=== PATIENT | male | born 1950 | race Caucasian/White ===

== ENCOUNTER 2021-10-25 07:37 | Outpatient (CLI) | payer MEDICARE, SELFPAY ==
[2021-10-16 09:47] VITALS: BMI 29.1
--- NOTE | 2021-10-16 09:49 | PC.NURSE ---
Pre Radiology instructions Report to the Outpatient Waiting Room, entrance under the green pavilion located off [facility], at time _0800 on date _10/25/21 . Procedure Time: ___1000 . One visitor will be allowed to accompany the patient into the hospital. The visitor will be instructed to remain with patient at all times or leave the building. We will allow the visitor to come back to the postoperative area when patient is ready. You and your visitor will be asked a series of questions to screen for COVID 19 for your protection. A mask is required within the hospital. Patients are to have no food or drink 6 hours prior to procedure time Driving will be restricted after the procedure, you must have a person to drive you home. Labs will be drawn in preop area and once reviewed, you will be taken to radiology area for procedure. When the procedure is completed, you will be taken to outpatient where you will be monitored for several hours. You may have one visitor in this area. Other than holding anti-coagulants, patient may take other medication(s) as scheduled. Prior to your appointment date patients are instructed to hold anti-coagulants after discussing with ordering provider to stop. If unable to discontinue anti-coagulants please notify radiologist. No aspirin or warfarin (Coumadin) for 7 days prior to the procedure. No clopidogrel (Plavix), ticagrelor (Brilinta), prasugrel (Effient) or dabigatran (Pradaxa) for 5 days prior to the procedure. No rivaroxaban (Xarelto), apixaban (Eliquis), dipyridamole (Aggrenox or Persantine) or cilostazol (Pletal) for 2 days prior to the procedure. Medications to discontinue per physician: NONE Date to take last dose: Please leave all valuables, including medications, at home the day of procedure. The hospital will not accept responsibility for valuables. Wear comfortable, loose fitting clothing. Follow any additional instructions given to you from ordering provider. Telephone instructions given to __PATIENT'S MINGO and asked if any additional questions and then verbalized understanding. Patient advised to call scheduling provider office or registration scheduling [phone] if any additional questions.
--- NOTE | ~2021-10-25 | XR_ITS ---
EXAMINATION: XR myelogram spine lumbosacral DATE: 10/25/2021 10:09 INDICATION: Lumbar spondylosis with low back pain and lower limb radiculopathy TECHNIQUE: Informed consent was obtained from the patient. Risks and benefits including bleeding, i nfection and nerve root injury were discussed with the patient. The patient agreed to proceed. Time out procedure was performed. Store Custodian radiograph was obtained. An entry site was chosen at the L3-L4 level. Interspinous process approach was used. Standard sterile prep was done with Betadine. Entry site was infiltrated with 3 cc 1% lidocaine for local anesthesia. A 3.5 22G spinal needle was then inserted into the spinal canal. 15 mL Omnipaque 180 were then injected into the thecal sac with inte rmittent fluoroscopic observation. Frontal, lateral and left and right oblique fluoroscopic images were then acquired. The patient was then transferred to CT scan for spiral CT of the lumbar spine which will be dictated separately. Fol lowing this patient was transferred to the postoperative area for 2 hours of observation. There are no immediate complications. FINDINGS: Images demonstrate access of the thecal sac by interspinous process approach at the level of L3-L4. S ubsequent images demonstrate normal filling of the thecal sac with contrast. Vertebral body heights a re normal. Mild retrolisthesis L2 on L3, L3 on L4 and L4 on L5. Mild disc height loss with disc bulge s from L1-L2 through L5-S1. IMPRESSION: 1. Successful intrathecal administration of intravenous contrast for lumbar myelogram on subsequent C T myelogram. 2. Mild lumbar spondylosis with mild grade 1 retrolisthesis L2 on L3-L4 on L5 and mild disc height lo ss with disc bulges at L1-L2 through L5-S1. Reviewed, dictated and finalized at location A. IMPRESSION: 1. Successful intrathecal administration of intravenous contrast for lumbar mye logram on subsequent CT myelogram. 2. Mild lumbar spondylosis with mild grade 1 retrolisthesis L2 on L3-L4 on L5 a nd mild disc height loss with disc bulges at L1-L2 through L5-S1.
--- NOTE | ~2021-10-25 | CT_ITS ---
EXAMINATION: CT lumbar spine w con DATE: 10/25/2021 10:03 INDICATION: Lumbar spondylosis with low back pain and radiculopathy extending to the lower limbs. TECHNIQUE: Computed tomography (CT) of the lumbar spine was performed in prone position with intrathe cayetano contrast but without intravenous contrast. Details of the intrathecal contrast injection been dic tated separately. Automated exposure control and iterative reconstruction technique were employed. Th e dose-length product was 892.77 mGy-cm. COMPARISON: Radiographs dated 10/25/2021 FINDINGS: 3 mm anterolisthesis L3 on L4 and L4 on L5. Anterior wedging with 10-20% anterior vertebral body heig ht loss at T12. Lumbar vertebral body heights are normal. Mild disc height loss at T11-T12 through L5 -S1 relatively sparing T12-L1. Bilateral nonobstructing nephrolithiasis with the largest stone at an upper pole calyx of left kidney measuring up to 4 mm. Paravertebral soft tissues are unremarkable. Th e following disc levels are specifically discussed: T11-T12: Disc is mildly bulging with thin curvilinear ossification along the posterior disc margin. T here is moderate bilateral facet joint osteoarthritis. There is mild right and moderate left neural f oraminal stenosis. There is mild central canal stenosis with flattening of the ventral surface of the cord. T12-L1: The disc does not extend beyond the endplate margin. There is mild bilateral facet joint oste oarthritis. There is no neural foraminal stenosis. There is no central canal stenosis. L1-L2: Disc is mildly bulging. There is mild left and mild to moderate right facet joint osteoarthrit is. There is mild right neural foraminal stenosis. There is minimal central canal stenosis. L2-L3: Disc is bulging. There is mild bilateral facet joint osteoarthritis. There is mild left and mi nimal right neural foraminal stenosis. There is mild central canal stenosis. L3-L4: Disc is bulging. There is mild to moderate bilateral facet joint osteoarthritis. There is mild bilateral neural foraminal stenosis. There is mild central canal stenosis. L4-L5: Disc is mildly bulging. There is mild bilateral facet joint osteoarthritis. There is moderate bilateral neural foraminal stenosis. There is mild central canal stenosis. L5-S1: Disc is mildly bulging. There is mild left and mild to moderate right facet joint osteoarthrit is. There is moderate bilateral, left greater than right neural foraminal stenosis. There is no centr al canal stenosis. IMPRESSION: 1. Mild lumbar spondylosis. Reviewed, dictated and finalized at location A. IMPRESSION: 1. Mild lumbar spondylosis.
--- NOTE | ~2021-10-25 | XR_ITS ---
EXAMINATION: XR lumbar spine min 4V DATE: 10/25/2021 09:18 INDICATION: Low back pain and radiculopathy extending to the lower limbs. TECHNIQUE: Anteroposterior and lateral in neutral, flexion and extension views of the lumbar spine we re obtained. COMPARISON: None. FINDINGS: In the neutral position there is 1-2 mm retrolisthesis L2 on L3 which reduces with flexion and increa ses to 2-3 mm with extension. 3 mm retrolisthesis of L3 on L4 which is unchanged with flexion and inc reases to 4 mm with extension. 3-4 mm retrolisthesis L4 on L5 unchanged with flexion and extension. M inimal anterior wedging at T12. Lumbar vertebral body heights are normal. Mild disc height loss from T9-T10 through L5-S1 relatively sparing T12-L1. Multilevel mild to moderate lumbar facet osteoarthrit is. Moderate bilateral sacroiliac osteoarthritis. Several phleboliths in the pelvis. Right iliac bone island. IMPRESSION: 1. Mild thoracic spondylosis with mild grade 1 retrolisthesis of L2 on L3-L4 on L5 with minimal trimble e at a few levels with flexion or extension as detailed above. Reviewed, dictated and finalized at location A. IMPRESSION: 1. Mild thoracic spondylosis with mild grade 1 retrolisthesis of L2 on L3-L4 on L5 with minimal change at a few levels with flexion or extension as detailed a baljit.
[2021-10-25 08:00] VITALS: BP 154/80; PULSE 61; RESP 16; TEMP 36.2; O2SAT 98
[2021-10-25 08:32] LABS: Mean Platelet Volume 9.7 fl (7.4-10.4); Platelet Count Result 229 k/mm3 (150-375)
[2021-10-25 08:45] LABS: INR 0.9; Prothrombin Time 12.2 Seconds (11.1-14.7)
[2021-10-25 10:05] VITALS: BP 137/72; PULSE 53; RESP 16; O2SAT 100
[2021-10-25 10:35] VITALS: BP 136/74; PULSE 61; RESP 14; O2SAT 99
[2021-10-25 11:05] VITALS: BP 126/78; PULSE 51; RESP 14; O2SAT 100
[2021-10-25 11:35] VITALS: BP 139/76; PULSE 57; RESP 14; O2SAT 97
[2021-10-25 12:05] VITALS: BP 139/76; PULSE 61; RESP 14; O2SAT 98
== END 2021-10-25 12:20 | disposition home or self-care (01) ==
PROVIDERS: Radiology Diagnostic Radiology; PCP Family Medicine; Visit Provider Neurological Surgery
DX: M47.816 Spondylosis without myelopathy or radiculopathy, lumbar region (principal); M43.16 Spondylolisthesis, lumbar region; M51.36 Other intervertebral disc degeneration, lumbar region; M47.814 Spondylosis without myelopathy or radiculopathy, thoracic region
CPT/HCPCS: 36415; 62304; 72110; 72132; 85049; 85610; Q9965

== ENCOUNTER 2022-04-09 14:22 | Outpatient (CLI) | payer MEDICARE, SELFPAY ==
[2022-04-12 10:22] LABS: Carbamazepine Tegretol 6.7 mcg/mL (4.0-12.0)
== END 2022-04-09 14:23 | disposition home or self-care (01) ==
PROVIDERS: Anesthesiology; PCP Family Medicine; Visit Provider Neurological Surgery
DX: M47.816 Spondylosis without myelopathy or radiculopathy, lumbar region (principal); T42.1X1A Poisoning by iminostilbenes, accidental (unintentional), initial encounter
CPT/HCPCS: 36415; 80156; 86850; 86900; 86901

== ENCOUNTER 2022-04-15 00:36 | Day surgery (SDC) | payer MEDICARE, SELFPAY ==
[2022-04-03 08:38] VITALS: BMI 29.0
--- NOTE | 2022-04-03 09:18 | PC.NURSE ---
PRE-OP INSTRUCTIONS, PLEASE READ CAREFULLY Report to the Outpatient Waiting Room, entrance under the green pavilion located off [facility], at time _0600_ on date _04/15/22_. Planned Procedure Time: _0730_. Time changes happen often and if your time is changed the preop area will call you the afternoon before. - You and your visitor will be asked to self-screen and do not enter if you have any COVID symptoms. - Only one visitor is requested with a max of two and NO children visitors are allowed at this time. - The patient visitor may be requested to leave or wait in car when not with patient due to distancing restrictions. - A mask is required within the hospital. Patients may have clear liquids (water, carbonated beverages, clear teas, apple juice) until 3 hours prior to surgery (0430 AM) with a maximum of 20 ounces. - No food from midnight until time of surgery Take the following medications with a SIP of water the morning of surgery: _CARBAMAZEPINE, LEVETIRACETAM_ Medications to discontinue per ANESTHESIA - _VITAMINS & SUPPLEMENTS 3 DAYS PRIOR TO SURGERY, Date to take last dose 04/11/22_ Please no deodorant, or body powder the day of surgery. No jewelry (including any body piercings) or valuables the day of surgery, leave them at home. Please take a shower or bath the night before, or the morning of, surgery with an antibacterial soap. Wear comfortable, loose fitting clothing. - Jewelry must be removed prior to entering the operating room. Rings and piercings that are not removed may be cut off. - The hospital will not accept responsibility for valuables. - Please leave all valuables, including medications, at home the day of surgery. If you are going home after surgery, a licensed fork truck driver must drive you home. - NO public transportation without another adult if you receive anesthesia. - We recommend that an adult stay with you for 24 hours following discharge. - We also recommend that you do not drive, make important decision, drink alcoholic beverages, or take any drugs that were not prescribed by your health care provider for at least 24 hours after your discharge time. Follow any additional instructions given to you from your surgeon. If you or anyone in your household have experienced Covid symptoms in the past week, please notify your surgeon or the nurse liaison at the phone number below for possible testing. Telephone instructions given to _PATIENT'S SPOUSE (MINGO)_and asked if any additional questions and then verbalized understanding. Patient advised to call surgeon office or pre surgery nurse liaison [phone] if any additional questions.
--- NOTE | 2022-04-14 17:42 | P.PNAN_ITS ---
Anes - Eval Pre Procedure Procedure: Operation Date: 04/15/22 08:30 Proposed Procedures p L5-S1 Lumbar Decompression - Eleni Kapoor MD Date/Time: 04/14/22 17:42 Pre Op Diagnosis: lumbar spondylosis Patient Data Age: 71 Gender: M Height: 1.8 m Weight: 94.5 kg Allergies Allergy/AdvReac Type Severity Reaction Status Date / Time clindamycin AdvReac Rash Verified 04/03/22 08:33 Home Medications Medication Instructions Recorded Confirmed Type ascorbic acid (vitamin C) 500 mg 500 mg PO DAILY 10/16/21 04/03/22 History tablet carbamazepine 200 mg tablet 200 mg PO TID 10/16/21 04/03/22 History cholecalciferol (vitamin D3) 50 100 mcg PO DAILY 10/16/21 04/03/22 History mcg (2,000 unit) tablet levetiracetam 500 mg tablet 500 mg PO BID 10/16/21 04/03/22 History magnesium citrate 100 mg tablet 400 mg PO DAILY 10/16/21 04/03/22 History zinc 22 mg tablet 44 mg PO DAILY 04/03/22 04/03/22 History Patient hx anesthesia problems: none Family hx anesthesia problems: none Results Review: All pre-operative results and documents have been reviewed as part of the pre- operative evaluation. [facility] Past Medical History Medical History (Updated 03/21/22 @ 16:24 by Eleni Kapoor MD) Spondylosis without myelopathy or radiculopathy, lumbar region Surgical History Surgical History (Updated 03/21/22 @ 14:21 by Blanca Harris MA) H/O hernia repair H/O laminectomy Family History Family History (Updated 03/21/22 @ 14:22 by Blanca Harris MA) Other Heart disease Social History Social History (Updated 03/21/22 @ 14:22 by Blanca Harris MA) Smoking status: Never smoker Second hand tobacco smoke exposure: No Alcohol intake: never Substance use: never Substance use type: does not use Lack of Food: Sometimes True Current Housing: I Have Housing Concerned About Future Housing: No Difficulty Paying Gas/Electric Bills: No Difficulty Paying for Meds: No Currently Unemployed: No Education: Decline to Answer Difficulty w/ Childcare or Family Care: No Spiritual care concerns: No Exam Day of Procedure 04/14/22 17:42
[2022-04-15] VITALS (11 sets, daily range): BP systolic 118–152; BP diastolic 64–95; PULSE 51–67; RESP 11–17; TEMP 36.2–36.6; O2SAT 97–100; BMI 29.0
--- NOTE | ~2022-04-15 | XR_ITS ---
EXAMINATION: XR fluoroscopy no charge DATE: 04/15/2022 09:19 INDICATION: Lumbar decompression TECHNIQUE: A single lateral fluoroscopic spot image of the lumbosacral spine was obtained during proc edure performed by Dr. Kapoor. Radiologist was not present for the imaging or procedure. The amount of fluoroscopy time used during this procedure was 0.1 minutes. COMPARISON: 10/25/2021 FINDINGS: Metallic retractors and probe project over a lucent likely upper defect posterior to L5. There appear s to been an L5 laminectomy. There appears be a few millimeter unchanged retrolisthesis of L4 on L5. Mild disc height loss at L4-L5 and L5-S1. IMPRESSION: 1. Fluoroscopy utilized during surgical procedure at the lower lumbar spine with likely L5 laminectom y. Correlate with procedure note for further detail. Reviewed, dictated and finalized at location A. LIENT TILE INSTALLER IMPRESSION: 1. Fluoroscopy utilized during surgical procedure at the lower lumbar spine wit h likely L5 laminectomy. Correlate with procedure note for further detail.
[2022-04-15] MEDS: LACTATED RINGERS 1,000 ML 30 ML IV CONT ×2 (07:05→10:07)
--- NOTE | 2022-04-15 07:40 | WPDANESEPPF ---
Anes - Initial Pre Proc Eval Procedure: Operation Date: 04/15/22 08:30 Proposed Procedures p L5-S1 Lumbar Decompression - Eleni Kapoor MD Date/Time: 04/15/22 07:40 Surgeon: Eleni Kapoor MD Pre Op Diagnosis: lumbar spondylosis Patient Data Age: 71 Gender: M Height: 1.8 m Weight: 94.35 kg Last Vital Signs Temp 97.9 F 04/15/22 06:35 Pulse 62 04/15/22 06:35 Resp 16 04/15/22 06:35 BP 142/81 H 04/15/22 06:35 Pulse Ox 99 04/15/22 06:35 O2 Del Method Room Air 04/15/22 06:35 Allergies Allergy/AdvReac Type Severity Reaction Status Date / Time clindamycin Allergy Unknown Rash Verified 04/15/22 06:44 Home Medications Medication Instructions Recorded Confirmed Type ascorbic acid (vitamin C) 500 mg 500 mg PO DAILY 10/16/21 04/15/22 History tablet carbamazepine 200 mg tablet 200 mg PO TID 10/16/21 04/15/22 History cholecalciferol (vitamin D3) 50 100 mcg PO DAILY 10/16/21 04/15/22 History mcg (2,000 unit) tablet levetiracetam 500 mg tablet 500 mg PO BID 10/16/21 04/15/22 History magnesium citrate 100 mg tablet 400 mg PO DAILY 10/16/21 04/15/22 History zinc 22 mg tablet 44 mg PO DAILY 04/03/22 04/15/22 History psyllium husk 3.4 gram/5.4 gram See Rx Instructions .Route .COMPLEX 04/15/22 04/15/22 History oral powder (Metamucil) Patient hx anesthesia problems: none Family hx anesthesia problems: none Results Review: All pre-operative results and documents have been reviewed as part of the pre-operative evaluation. [facility] Past Medical History Medical History (Updated 03/21/22 @ 16:24 by Eleni Kapoor MD) Spondylosis without myelopathy or radiculopathy, lumbar region Surgical History Surgical History (Updated 03/21/22 @ 14:21 by Blanca Harris MA) H/O hernia repair H/O laminectomy Family History Family History (Updated 03/21/22 @ 14:22 by Blanca Harris MA) Other Heart disease Social History Social History (Updated 03/21/22 @ 14:22 by Blanca Harris MA) Smoking status: Never smoker Second hand tobacco smoke exposure: No Alcohol intake: never Substance use: never Substance use type: does not use Lack of Food: Sometimes True Current Housing: I Have Housing Concerned About Future Housing: No Difficulty Paying Gas/Electric Bills: No Difficulty Paying for Meds: No Currently Unemployed: No Education: Decline to Answer Difficulty w/ Childcare or Family Care: No Living arrangements: with family Spiritual care concerns: No Anes - Eval Final PreProcedure Day of Procedure 04/15/22 07:40 Patient weight: overweight Heart: regular rate and rhythm Lungs: clear to auscultation Airway: Mallampati scale class III (poor ROM; previous C-spien surgery) Neurological: alert and oriented Last oral intake: >/= 8 hours ASA classification: III Emergent: no Anesthetic plan: proceed Anesthesia type and monitoring: general ETT (have glidescope available) and standard monitoring Results Review: All pre-operative results and documents have been reviewed as part of the pre-operative evaluation. Informed Consent: The patient's anesthetic plan and its attendant risks and benefits were discussed with the patient/family/POA. Questions were solicited and answers provided to the satisfaction of the patient/family/POA.
--- NOTE | 2022-04-15 08:32 | WPDHPUPDATE1 ---
History and Physical Update Update Date/Time: 04/15/22 08:32 History and Physical has been reviewed, including an updated exam of the patient. There are NO changes in the patient's condition. Risks, benefits, and alternatives have been discussed and questions answered. Patient agrees to proceed with procedure. Plan is for lumbar decompression at L5-S1 with attention to right lateral recess
[2022-04-15] MEDS: ceFAZolin 2 GM/D5W 50 ML 2 GM/50 ML BAG IVPB (08:40)
[2022-04-15] MEDS: BUPIVACAINE/EPINEPHRINE 0.5% 30 ML VIAL INFILTRATE (09:15)
--- NOTE | 2022-04-15 09:51 | W.PM.PROC2 ---
Procedure Note - Detailed Date of Procedure 04/15/22 Pre-op Diagnosis lumbar spondylosis Post-op Diagnosis Same Procedure Performed lumbar laminectomy, medial facetectomy and foraminotomies L5-S1 Surgeon Eleni Kapoor MD Anesthesia General Indications Guilherme Angeles is a very pleasant ?71 year old ?male who presents at the request of Dr. melton with signs and symptoms of low back and right greater than left lower extremity pain in the setting of lumbar spondylosis with moderate right lateral recess stenosis at L5-S1 on imaging. ?The patient is unable to tolerate MR imaging studies due to retained metal. ?He has tried treatments that include formal physical therapy as well as epidural steroid injections targeting L4-5 and L5-S1 on the right. ?These injections gave temporary relief of the patient's right lower extremity pain. ?His radicular symptoms were less severe at a October visit and they wore at our prior visits and certainly less severe than they were earlier in the year. at our [facility] visit, however, the patient noted progression of his right lower extremity symptoms and was inclined to consider surgery. The patient and I have had an extended discussion in the office regarding the options for management of these clinical symptoms and radiographic findings. We have discussed the option of additional physical therapy or repeated interventional pain management strategies including SANJAY or ablative procedures. In this case we have more specifically discussed that? as these measures have not given lasting relief in the past, the likelihood that repeated attempts would offer a different result is small Finally, we have generally discussed the option of surgery. In the absence of functional deficits, I have explained that my preference is to exhaust non surgical options prior to consideration of surgery. However, we have discussed that as his lower extremity pain, particularly the right lower extremity pain, returned and as he has been unable to obtain durable relief of symptoms with non surgical measures that it would be reasonable to consider surgical intervention. In this case we have discussed that surgery would entail a lumbar decompression at L5-S1? with particular attention to the lateral recess and neural foraminal on the right. ?Mr. Angeles is inclined to pursue surgery. I have discussed the indications as well as the risks of surgery including but not limited to bleeding, infection, CSF leak, numbness, weakness, paralysis, stroke, coma, even . We have discussed the fundamentals of the surgical procedure as well as the typical recovery from surgery. He indicates understanding and asks us to proceed with surgery, specifically a lumbar decompression at L5-S1 Description of Procedure The patient was brought into the operating room where general anesthesia was induced.? Appropriate monitoring was obtained.? The patient was turned into a prone position on the Juan table with a Nazario frame.? Extremeties were padded.? The patient was secured with straps to the table.? Localization was performed using intraoperative fluoroscopy and the L5-S1 level was identified. The patient's back was prepped and draped sterilely.? A surgical time out was performed.? The planned incision was infused with local anesthetic.? The incision was made using a #10 skin blade.? Hemostasis was achieved. Self retaining retractors were placed and advanced.? The? L5 and S1 spinous precesses were identified and the muscle was dissected off of the spinous process and lamina of L4 and L5 and S1 using bovie electrocautery.? Self retaining retractors were advanced. Attention was turned to the L5-S1 level.? A curette was placed under the L5 lamina and the L5-S1 level was confirmed again using intraoperative fluoroscopy.? The spinous process of L5 was removed using a rongeur.? The lamina was drilled using a high speed dane drill with a matchstick tip.? The lamina was drilled lateral to the leve
[2022-04-15] MEDS: fentaNYL CITRATE INJ (*CRX) 100 MCG/2 ML VIAL 25 MCG IV PUSH ×4 (10:39→12:15)
[2022-04-15] MEDS: oxyCODONE HCL (*CRX) 5 MG TAB IR PO (11:37)
[2022-04-15] MEDS: CYCLOBENZAPRINE HCL 10 MG TABLET PO (12:19)
== END 2022-04-15 13:20 | disposition home or self-care (01) ==
PROVIDERS: PCP Family Medicine; Visit Provider Neurological Surgery
PROC: (CPT 22612; principal; 2022-04-15 08:30)
DX: M47.816 Spondylosis without myelopathy or radiculopathy, lumbar region (principal)
CPT/HCPCS: 63047; 99199; A9270; C9290; J0690; J1100; J2405; J2704; J3010; J3370; J7120

== ENCOUNTER 2023-10-17 08:06 | Outpatient (CLI) | payer MEDICARE, SELFPAY ==
--- NOTE | 2023-10-17 09:00 | ECG_ITS ---
Test Date: 2023-10-17 09:03:35 Measurements Intervals Moody Rate: 51 P: 0 NV: 180 QRS: -25 QRSD: 151 T: 11 QT: 439 QTc: 408 Interpretive Statements SINUS BRADYCARDIA BORDERLINE LEFT AXIS DEVIATION [QRS AXIS < -20] INTRAVENTRICULAR CONDUCTION DELAY [130+ ms QRS DURATION] No previous ECG available for comparison Electronically Signed On 10-17-2023 11:29:47 CDT by Manjit Arriaga M.D.
[2023-10-17 09:08] LABS: Alanine Aminotransferase 39 U/L (6-50); Albumin Level 4.4 g/dL (3.5-5.1); Alkaline Phosphatase 79 U/L (38-126); Amylase 53 U/L (30-110); Aspartate Amino Transferase 20 U/L (17-59); Bilirubin,Total 0.5 mg/dL (0.2-1.3); Lipase 37 U/L (23-300)
[2023-10-21 01:49] LABS: Carbamazepine Tegretol 7.1 mcg/mL (4.0-12.0)
== END 2023-10-17 08:07 | disposition home or self-care (01) ==
LOC: ANHLAB 08:10
PROVIDERS: PCP Family Medicine; Referring Provider Anesthesiology; Visit Provider Surgery
DX: Z01.818 Encounter for other preprocedural examination (principal); K80.10 Calculus of gallbladder with chronic cholecystitis without obstruction; G40.909 Epilepsy, unspecified, not intractable, without status epilepticus; I45.89 Other specified conduction disorders
CPT/HCPCS: 36415; 80076; 80156; 82150; 83690; 93005

== ENCOUNTER 2023-10-20 00:50 | Day surgery (SDC) | payer MEDICARE, SELFPAY ==
--- NOTE | 2023-10-16 09:53 | PC.NURSE ---
Report to the Outpatient Waiting Room, entrance under the green pavilion located off [facility], at time _7:30 AM on date __10/20/23 . Planned Procedure Time: __9:30 AM . Time changes happen often and if your time is changed the preop area will call you the afternoon before. - You and your visitor will be asked to self-screen and do not enter if you have any COVID symptoms. - A mask is optional within the hospital at this time. Patients may have clear liquids (water, carbonated beverages, clear teas, apple juice) until 3 hours prior to surgery( 6:30 AM) with a maximum of 20 ounces. - No food from midnight until time of surgery - Infants may have breast milk until 4 hours before surgery, infant formula 6 hours prior to surgery. - Children will be allowed to drink immediately following surgery. If applicable, please bring a bottle or sippy cup to assist with drinking. Juice, water, soda, and popsicles are readily available. For infants on formula, please bring formula the day of surgery. Pacifiers are allowed. Take the following medications with a SIP of water the morning of surgery: __CARBAMAZEPINE,LEVETIRACETAM DO NOT STOP ANY OF YOUR OTHER PRESCRIPTION MEDICATIONS PRIOR TO SURGERY ?EXCEPT THE FOLLOWING Medications to discontinue per physician ____ALL VITAMINS AND SUPPLEMENTS 3 DAYS PRE OP .LAST DOSE 10/16/23 Please no make-up, nail irish, hairspray, perfume, deodorant, or body powder the day of surgery. No jewelry (including any body piercings) or valuables the day of surgery, leave them at home. Please take a shower or bath the night before, or the morning of, surgery with an antibacterial soap. Wear comfortable, loose fitting clothing. Children are encouraged to wear pajamas. - Jewelry must be removed prior to entering the operating room. Rings and piercings that are not removed may be cut off. - The hospital will not accept responsibility for valuables. - Please leave all valuables, including medications, at home the day of surgery. If you are going home after surgery, a licensed route salesman and driver must drive you home. - NO public transportation without another adult if you receive anesthesia. - We recommend that an adult stay with you for 24 hours following discharge. - We also recommend that you do not drive, make important decision, drink alcoholic beverages, or take any drugs that were not prescribed by your health care provider for at least 24 hours after your discharge time. Follow any additional instructions given to you from your surgeon. If you or anyone in your household have experienced Covid symptoms in the past week, please notify your surgeon or the nurse liaison at the phone number below for possible testing. Telephone instructions given to ___WIFE MINGO and asked if any additional questions and then verbalized understanding. Patient advised to call surgeon office or pre surgery nurse liaison [phone] if any additional questions.
[2023-10-16 10:05] VITALS: BMI 28.3
[2023-10-20] VITALS (26 sets, daily range): BP systolic 106–155; BP diastolic 42–92; PULSE 45–105; RESP 12–20; TEMP 36.2–37.1; O2SAT 93–100; BMI 26.9; BMI 28.8
--- NOTE | ~2023-10-20 | CT_ITS ---
EXAMINATION: CT abdomen pelvis wo con DATE: 10/20/2023 14:44 INDICATION: Umbilical bulge and swelling TECHNIQUE: Computed tomography (CT) of the abdomen and pelvis was performed without intravenous contr ast. Automated exposure control and iterative reconstruction technique were employed. The dose-length product was 808.20 mGy-cm. COMPARISON: None FINDINGS: Dependent and bandlike discoid atelectasis in the bilateral lower lobes. Additional mild discoid atel ectasis at the lingula. Heart size is normal. Atherosclerotic coronary artery calcifications. No michael cardial or pleural effusion. Postoperative change of recent cholecystectomy with surgical clips and a small amount of gas and minimal stranding at the gallbladder fossa. A few low-attenuation likely hep atic cysts the largest in the left hepatic lobe measuring 1.8 cm in maximal diameter. Splenic calcifi cation consistent with old granulomatous disease. Pancreas, bilateral adrenal glands and kidneys are normal. Bladder is normal. Prostatomegaly measuring 6.5 x 6.2 cm. There are some additional scattered soft tissue gas in the right anterior abdominal which tracks ceph alad to the right axilla and caudally to the right inguinal region. There is a loop of small bowel wh ich extends into a moderate-sized umbilical hernia. The orifice to the hernia which is reportedly rep ortedly repaired measures 3.5 left and right by 2.3 cm craniocaudally. Nondilated bowel to suggest ob struction. Mild diverticulosis along the descending and sigmoid colon without adjacent from trace str anding to suggest diverticulitis. Normal appendix. Minimal amount of likely residual postoperative in traperitoneal gas in the nondependent abdomen. No abscess, hematoma, biloma or other appreciable free intraperitoneal fluid. No pathologically enlarged abdominal or pelvic lymphadenopathy. Moderate thor acic and lumbar spondylosis. IMPRESSION: 1. Likely recurrent moderate-sized umbilical hernia containing a loop of nonobstructed small bowel. 2. Postoperative changes consistent with prior cholecystectomy with no abscess, hematoma or biloma. 3. Moderate atelectasis in the bilateral lower lobes. 4. Prostatomegaly. Reviewed, dictated and finalized at location B. IMPRESSION: 1. Likely recurrent moderate-sized umbilical hernia containing a loop of nonobs tructed small bowel. 2. Postoperative changes consistent with prior cholecystectomy with no abscess, hematoma or biloma. 3. Moderate atelectasis in the bilateral lower lobes. 4. Prostatomegaly.
[2023-10-20] MEDS: ACETAMINOPHEN 500 MG TABLET 1000 MG PO (08:34)
[2023-10-20] MEDS: KETOROLAC 15 MG/ML VIAL (*BKC) IV PUSH (08:34)
--- NOTE | 2023-10-20 08:44 | P.PNAN_ITS ---
Anes - Initial Pre Proc Eval Procedure: Operation Date: 10/20/23 09:30 Proposed Procedures p Laparoscopic Cholecystectomy - Davey Turcios MD Date/Time: 10/20/23 08:44 Surgeon: Davey Turcios MD Pre Op Diagnosis: Chr Calculous Cholecystitis Patient Data Age: 72 Gender: M Height: 1.8 m Weight: 87.35 kg Allergies Allergy/AdvReac Type Severity Reaction Status Date / Time clindamycin Allergy Unknown Rash Verified 10/16/23 09:37 Home Medications Medication Instructions Recorded Confirmed Type ascorbic acid (vitamin C) 500 mg 500 mg PO DAILY 10/16/21 10/16/23 History tablet carbamazepine 200 mg tablet 200 mg PO TID 10/16/21 10/16/23 History cholecalciferol (vitamin D3) 50 100 mcg PO DAILY 10/16/21 10/16/23 History mcg (2,000 unit) tablet levetiracetam 500 mg tablet 500 mg PO BID 10/16/21 10/16/23 History magnesium citrate 100 mg tablet 400 mg PO DAILY 10/16/21 10/16/23 History zinc 22 mg tablet 44 mg PO DAILY 04/03/22 10/16/23 History psyllium husk 3.4 gram/5.4 gram See Rx Instructions .Route .COMPLEX 04/15/22 10/16/23 History oral powder (Metamucil) sildenafil 50 mg tablet (Viagra) 50 mg PO DAILY PRN Erectile 10/15/23 10/16/23 History Dysfunction Patient hx anesthesia problems: none Family hx anesthesia problems: none Results Review: All pre-operative results and documents have been reviewed as part of the pre- operative evaluation. [facility] Past Medical History Medical History Seizure disorder Spondylosis without myelopathy or radiculopathy, lumbar region Surgical History Surgical History H/O hernia repair H/O laminectomy Family History Family History Other Heart disease Social History Social History Smoking status: Never smoker Second hand tobacco smoke exposure: No Alcohol intake: never Substance use: never Substance use type: does not use Do You Feel Safe in your Home?: Yes Lack of Transportation: No Lack of Food: Never True Current Housing: I Have Housing Concerned About Future Housing: No Difficulty Paying Gas/Electric Bills: No Difficulty Paying for Meds: No Currently Unemployed: No Education: High School Diploma/GED Difficulty w/ Childcare or Family Care: No Living arrangements: with family Spiritual care concerns: No Anes - Eval Final PreProcedure Day of Procedure 10/20/23 08:44 Patient weight: overweight Heart: regular rate and rhythm Lungs: clear to auscultation Airway: Mallampati scale class II Neurological: alert and oriented Last oral intake: >/= 8 hours ASA classification: III Emergent: no Anesthetic plan: proceed Anesthesia type and monitoring: general ETT and standard monitoring Results Review: All pre-operative results and documents have been reviewed as part of the pre-operative evaluation. Informed Consent: The patient's anesthetic plan and its attendant risks and benefits were discussed with the patient/family/POA. Questions were solicited and answers provided to the satisfaction of the patient/family/POA.
[2023-10-20] MEDS: LACTATED RINGERS 1,000 ML 30 ML IV CONT ×3 (08:50→17:00)
--- NOTE | 2023-10-20 09:21 | WPDHPUPDATE1 ---
History and Physical Update Update Date/Time: 10/20/23 09:21 Patient has decided he would like to have his umbilical hernia repaired at this operation as well as the laparoscopic cholecystectomy. We discussed this in the office. I discussed again, now, and all questions were answered. We will proceed with both procedures. History and Physical has been reviewed, including an updated exam of the patient. There are NO changes in the patient's condition. Risks, benefits, and alternatives have been discussed and questions answered. Patient agrees to proceed with procedure.
[2023-10-20] MEDS: ceFAZolin 2 GM/D5W 50 ML 2 GM/50 ML BAG IVPB (09:30)
[2023-10-20] MEDS: BUPIVACAINE/EPINEPHRINE 0.5% 50 ML VIAL 20 ML INFILTRATE (10:17)
--- NOTE | 2023-10-20 11:50 | W.PM.PROC2 ---
Procedure Note - Detailed Date of Procedure 10/20/23 Pre-op Diagnosis Chronic cholecystitis, cholelithiasis, umbilical hernia with 1.5 cm defect Post-op Diagnosis Other (Chronic cholecystitis, cholelithiasis; umbilical hernia with 3.3 cm defect) Procedure Performed Laparoscopic cholecystectomy, repair umbilical hernia with 3.3 cm defect Surgeon Davey Turcios MD Advertising Operations Manager Ayo BOYKIN Anesthesia General and Local Indications Patient has had postprandial epigastric pain and nausea for at least 4 months. It is worse after fatty meals. He had a CT scan of the abdomen which showed a 2 cm gallstone. He is felt to have chronic cholecystitis and is taken to surgery now for laparoscopic cholecystectomy. Patient also has an asymptomatic umbilical hernia which in the office was difficult to palpate the defect but it felt like it was 1.5 cm. On the day of surgery, he decided he would like to have the umbilical hernia repaired at the same time. He is taken to surgery now for both these procedures. Findings Chronic cholecystitis with large gallstone, fatty liver. No biliary ductal dilatation. Umbilical hernia was actually larger and was 3.3 cm in length as measured intraoperatively. Description of Procedure Patient was taken to surgery and induced into general anesthesia. The abdomen is prepped draped. The proposed incision for the umbilical hernia was marked on the skin just above the umbilicus and I circular manner over less than half of the umbilicus. Local was infiltrated into this area. Incision was made through the skin. The varies needle was then introduced through incision and through the hernia defect. Insufflation of the abdominal cavity was carried out. Once the abdomen was adequately distended, I placed an applied Medical optical 10 11 port at the umbilical site. We had good intraperitoneal location. Under direct visualization the other 5 mm ports were placed in the usual fashion. Patient was placed in reverse Trendelenburg. There were omental adhesions to the gallbladder. While we were taking these down the patient had some severe bradycardia. We intermittently had to evacuate the CO2 a and stop working and has our anesthesia department corrected the bradycardia which did include frequent PVCs. We were able to resume but at only 10 mm insufflation pressure. We did reduce some of the reverse Trendelenburg. We evacuated the gallbladder using a laparoscopic aspirator. The cholecystotomy was closed with a Vicryl endoloop. We then elevated the gallbladder further and took down additional adhesions of omentum down to and including the infundibulum. We were then able to retract the gallbladder further. The procedure was made more difficult as the liver had a tendency to tear easily. As we retracted the gallbladder, and omental adhesion to or from the more posterior aspect of the right lobe of the liver lateral to the gallbladder. I cauterized this and achieved reasonable hemostasis. Additionally, dissecting the gallbladder caused another rent in the liver just medial to the falciform ligament. This required some attention as well with cautery and then later some FloSeal. Aside from these abnormalities, the gallbladder was retracted anterosuperiorly. It was obvious there was a large stone in the distal gallbladder. We were only able to grasp the gallbladder above or below this stone. The liver was very fragile and even normal manipulation would trigger tares and bleeding. This was not significant bleeding but did have to be addressed with cautery. After taking down the adhesions to the gallbladder, traction was placed on the infundibulum and dissection was carried out in the triangle of Calot. This was done very carefully using a blunt dissect our and cautery. There was still considerable amount of oozing of blood due to the inflammation. The cystic duct and cystic artery were eventually delineated. I made an incision in the left mid ab
[2023-10-20] MEDS: fentaNYL CITRATE INJ (*CRX) 100 MCG/2 ML VIAL 25 MCG IV PUSH ×4 (12:33→12:50)
[2023-10-20] MEDS: oxyCODONE HCL (*CRX) 5 MG TAB IR PO (13:36)
--- NOTE | 2023-10-20 15:35 | PM.PNGS ---
Progress Note: A&P Assessment and Plan (1) Umbilical hernia: Code(s): K42.9 - Umbilical hernia without obstruction or gangrene Status: Acute Assessment and Plan: The patient had a laparoscopic cholecystectomy, repair umbilical hernia with a 3.3 cm defect earlier this morning and was recovering well. I was called to the bedside by the postop nurse who was concerned with umbilical swelling. After examining the patient, I was concerned that he has a recurrent umbilical hernia with dehiscence of the primary repair. I called Dr. Turcios and discussed this with him, and he recommended ordering a stat CT scan of the abdomen and pelvis without contrast. He was made NPO. CT scan abdomen and pelvis showed a moderate-sized umbilical hernia containing a loop of nonobstructed small bowel. I called and discussed these findings with Dr. Turcios who recommended taking him back to the OR today for repair abdominal wound dehiscence, with possible mesh placement under general anesthesia. I discussed this with the patient, as well as the procedure, risks, benefits, and alternatives. Patient agrees to proceed. Will obtain consent and Dr. Turcios plans to proceed with surgery this evening. (2) Chronic calculous cholecystitis: Code(s): K80.10 - Calculus of gallbladder with chronic cholecystitis without obstruction Status: Acute Subjective Subjective Date/Time Seen: 10/20/23 15:35 Post Op day: 0 (laparoscopic cholecystectomy, repair umbilical hernia with 3.3 cm defect) Interval history: I was called by the PACU nurse after the patient was out of phase I recovery from his surgery. She called with concerns regarding swelling and purple discoloration around his umbilical incision. The patient has some mild periumbilical pain but no other complaints. He had some juice and crackers about an hour before my arrival. No drainage from his wound. Exam Const: General: comfortable and no acute distress Orientation/consciousness: patient oriented x3 GI: Inspection: non-distended and incision (incisions dry and glue intact) GI Palp: Yes Soft to palpation, Yes Tenderness to palpation present (GI) (periumbilical tenderness) and No Guarding due to palpation present (GI) Auscultation: Hypoactive bowel sounds present Other: Periumbilical incision dry with glue intact and he has a 4-5 cm umbilical bulge that has very mild purple discoloration of the skin, the bulge is soft and does seem to reduce with what feels like an umbilical defect (about 2-3 cm) consistent with an umbilical hernia. Objective Data Vital Signs Vital Signs: Vital Signs - 24 hr 10/20/23 08:51 10/20/23 11:43 10/20/23 11:55 Temperature 97.7 F 97.3 F L Pulse Rate 50 L 78 72 Respiratory Rate 16 16 13 Blood Pressure 141/67 H 148/83 H 126/63 Pulse Oximetry 100 100 100 Oxygen Delivery Room Air Simple Face Mask Simple Face Mask Oxygen Flow Rate 8 8 10/20/23 12:10 10/20/23 12:25 10/20/23 12:40 Temperature Pulse Rate 49 L 56 L 53 L Respiratory Rate 14 14 15 Blood Pressure 142/83 H 145/87 H 129/66 Pulse Oximetry 100 100 93 Oxygen Delivery Simple Face Mask Room Air Room Air Oxygen Flow Rate 8 10/20/23 12:55 10/20/23 13:07 10/20/23 13:08 Temperature Pulse Rate 55 L 46 L 45 L Respiratory Rate 12 16 16 Blood Pressure 127/61 127/61 155/66 H Pulse Oximetry 94 95 Oxygen Delivery Room Air Room Air Room Air Oxygen Flow Rate 10/20/23 13:38 10/20/23 14:00 10/20/23 15:00 Temperature Pulse Rate 54 L 83 80 Respiratory Rate 15 15 16 Blood Pressure 139/92 H 137/69 111/84 Pulse Oximetry Oxygen Delivery Room Air Room Air Room Air Oxygen Flow Rate 10/20/23 14:30 Temperature Pulse Rate 79 Respiratory Rate 15 Blood Pressure 145/75 H Pulse Oximetry Oxygen Delivery Room Air Oxygen Flow Rate Intake/Output Intake/Output: Intake & Output 10/17/23 10/18/23 10/19/23 10/20/23 23:59 23:59 23:59 23:59 Intake Total 500 Balance 500
--- NOTE | 2023-10-20 16:51 | WPDANESEPPF ---
Anes - Initial Pre Proc Eval Procedure: Operation Date: 10/20/23 09:30 Proposed Procedures p Laparoscopic Cholecystectomy - Davey Turcios MD Operation Date: 10/20/23 16:00 Proposed Procedures p Repair Abdominal Wound Dehiscence with Possible Mesh - Davey Turcios MD Date/Time: 10/20/23 16:51 Surgeon: Davey Turcios MD Pre Op Diagnosis: Chr Calculous Cholecystitis Patient Data Age: 72 Gender: M Height: 1.8 m Weight: 87.35 kg Last Vital Signs Temp 98.8 F 10/20/23 16:30 Pulse 56 L 10/20/23 16:30 Resp 16 10/20/23 16:30 BP 106/42 L 10/20/23 16:30 Pulse Ox 96 10/20/23 16:30 O2 Del Method Room Air 10/20/23 16:30 O2 Flow Rate 8 10/20/23 12:10 Allergies Allergy/AdvReac Type Severity Reaction Status Date / Time clindamycin Allergy Unknown Rash Verified 10/20/23 16:45 Home Medications Medication Instructions Recorded Confirmed Type ascorbic acid (vitamin C) 500 mg 500 mg PO DAILY 10/16/21 10/16/23 History tablet carbamazepine 200 mg tablet 200 mg PO TID 10/16/21 10/16/23 History cholecalciferol (vitamin D3) 50 100 mcg PO DAILY 10/16/21 10/16/23 History mcg (2,000 unit) tablet levetiracetam 500 mg tablet 500 mg PO BID 10/16/21 10/16/23 History magnesium citrate 100 mg tablet 400 mg PO DAILY 10/16/21 10/16/23 History zinc 22 mg tablet 44 mg PO DAILY 04/03/22 10/16/23 History psyllium husk 3.4 gram/5.4 gram See Rx Instructions .Route .COMPLEX 04/15/22 10/16/23 History oral powder (Metamucil) sildenafil 50 mg tablet (Viagra) 50 mg PO DAILY PRN Erectile 10/15/23 10/16/23 History Dysfunction ibuprofen 600 mg tablet 600 mg PO Q6H PRN pain #14 tabs 10/20/23 Rx oxycodone-acetaminophen 5 mg-325 0.5 - 1 tablet PO Q6H PRN pain #10 10/20/23 Rx mg tablet tabs Patient hx anesthesia problems: none Family hx anesthesia problems: none Results Review: All pre-operative results and documents have been reviewed as part of the pre-operative evaluation. [facility] Past Medical History Medical History Seizure disorder Spondylosis without myelopathy or radiculopathy, lumbar region Surgical History Surgical History H/O hernia repair H/O laminectomy Family History Family History Other Heart disease Social History Social History Smoking status: Never smoker Second hand tobacco smoke exposure: No Alcohol intake: never Substance use: never Substance use type: does not use Do You Feel Safe in your Home?: Yes Lack of Transportation: No Lack of Food: Never True Current Housing: I Have Housing Concerned About Future Housing: No Difficulty Paying Gas/Electric Bills: No Difficulty Paying for Meds: No Currently Unemployed: No Education: High School Diploma/GED Difficulty w/ Childcare or Family Care: No Living arrangements: with family Spiritual care concerns: No Anes - Eval Final PreProcedure Day of Procedure 10/20/23 16:51 Patient weight: overweight Heart: regular rate and rhythm Lungs: clear to auscultation Airway: Mallampati scale class II and special considerations (Missing several upper teeth. ) Neurological: alert and oriented Last oral intake: 2 hours ASA classification: III Emergent: yes Anesthetic plan: proceed Anesthesia type and monitoring: general ETT and standard monitoring Results Review: All pre-operative results and documents have been reviewed as part of the pre-operative evaluation. Pt w remote hx of absence seizures, last approx 10 years ago. Pt had lap tushar w repair of umbilical hernia this am, in phase 2 umbilical area w noted swelling. CT reveals umb hernia w nonobstructed section of small bowel. Of note, pt had several crackers and ice chips approx 1300 -1400 today. Infor
--- NOTE | 2023-10-20 17:08 | WPDHPUPDATE1 ---
History and Physical Update Update Date/Time: 10/20/23 17:08 History and Physical has been reviewed, including an updated exam of the patient. There are NO changes in the patient's condition. Risks, benefits, and alternatives have been discussed and questions answered. Patient agrees to proceed with procedure.
[2023-10-20] MEDS: BUPIVACAINE/EPINEPHRINE 0.5% 10 ML VIAL 50 ML INFILTRATE (18:32)
--- NOTE | 2023-10-20 18:44 | W.PM.PROC2 ---
Procedure Note - Detailed Date of Procedure 10/20/23 Pre-op Diagnosis Fascial dehiscence, incarcerated recurrent ventral hernia 4 cm defect Post-op Diagnosis Same Procedure Performed Repair incarcerated recurrent ventral hernia with 4 cm defect using Ventralex ST 8 cm mesh Surgeon Davey Turcios MD Seismograph Shooter Jessie Mahajan RN FA Anesthesia General and Local Indications Patient underwent laparoscopic cholecystectomy earlier today with incidental repair of an umbilical hernia. In the step-down unit prior to discharge, he was noted to have quite a bulge at the umbilicus. He had a CT scan which showed a recurrent hernia, bigger than the defect at surgery, with some bowel protruding through the defect. By CT, the defect was 4 cm x 4 cm. He is taken back to surgery now for repair of this recurrent ventral hernia, possibly with mesh. Findings Patient had a complete blowout of his previous repair. The suture were loose in the abdomen but yet the defect was considerably larger suggesting a combination of suture breaking and fascial tearing. The defect, in agreement with the CT scan, was 4 cm x 4 cm. There was loops of bowel residing in the subcutaneous out of the abdominal cavity consistent with an incarcerated recurrence. Description of Procedure Patient was taken to surgery and induced into general anesthesia. The glue was removed from the previous umbilical incision. The abdomen was then prepped and draped. Local was infiltrated into the previous incision and then this incision was reopened at the skin level. It was immediately noted that there was bowel under the skin in the subcutaneous. It was residing outside of the abdomen and thus incarcerated. With some difficulty, I placed the small intestine back in the abdomen and placed a Ray-Bruna sponge in the defect to keep it reduced. I then removed all the suture in the skin subcutaneous and fascia. The 3 Ethibond suture placed at the 1st surgery were completely loose. Once the suture had been removed, I then enlarged the incision both to the right and to the left in a transverse fashion. I then undermined the subcutaneous just above the abdominal wall fascia so that more of the fascia was exposed. I chose the [address] hernia mesh. The Ray tecs sponge was removed from the abdominal cavity. The mesh was placed in the abdominal defect. Since there was bowel directly under the hernia defect, I took great care not to have any of the suture needles pass through the mesh itself but rather the mesh that was associated with straps just superficial to the deeper mesh. I started with cranial and caudal transfascial suture of 0 Ethibond. These suture were placed such that the edges of the hernia defect would be pulled towards 1 another when the suture was tied. Time the suture had the desired effect. I then placed right and left lateral 0 Ethibond [id number] suture to secure the mesh transversely in a taut position. I then used [id number] 0 Ethibond suture and closed the fascia including a small bit of mesh with each of these suture. When these 2 suture were tied down, the fascia was reapproximated and under minimal tension. I then used 3-0 Vicryl suture and sutured the umbilical skin to the fascia. Two of these suture were placed. The skin was then approximated with interrupted 3-0 and 4-0 Vicryl suture. This produced a good skin closure. The wound was then dressed with cotton balls in the umbilical defect. Xeroform gauze was placed over the incision. Fluffs were placed over the repair and wound. Medipore tape was then used to keep the dressing in place. The patient was then awakened and taken to recovery in good condition. Sponge and needle counts were correct x2. Implants [address] hernia patch in underlay position Estimated Blood Loss -5 Drains No Packing No Pathology None sent Complications None Condition Stable Disposition PACU [facility] Billing Surgery - Charge
--- NOTE | 2023-10-20 19:39 | ADMGEN ---
This patient, Guilherme Angeles, was admitted to Medical Room 249-01. Patient/family oriented to hospital policies and general routines including ID bracelet, bed and alarms, visiting hours, pain management, procedures, bathroom and other care routines, personal items, smoking policy, room service/diet, and visiting hours. Information on how to activate the Rapid Response Team has been discussed. Patient/Family are encouraged to report perceived risks to care and to ask questions if they do not understand what they are told or what they should do.
[2023-10-20] MEDS: carBAMazepine 200 MG TABLET PO (21:14)
[2023-10-20] MEDS: ENOXAPARIN 30 MG/0.3 ML SYRINGE SUB-Q (21:14)
[2023-10-20] MEDS: ACETAMINOPHEN 500 MG TABLET PO (21:18)
[2023-10-20] MEDS: oxyCODONE/ACETAMINOPHEN (*CRX) 5-325 MG TABLET 1 TABLET PO (22:16)
[2023-10-21 00:08] VITALS: BP 124/61; PULSE 69; RESP 18; TEMP 36.6; O2SAT 96
[2023-10-21] MEDS: HYDROmorphone HCL INJ (*CRX) 1 MG/ML SYR IV PUSH (01:19)
[2023-10-21 04:46] VITALS: BP 130/64; PULSE 66; RESP 18; TEMP 36.5; O2SAT 94
[2023-10-21 04:48] VITALS: BP 135/64; PULSE 66; RESP 18; TEMP 36.5; O2SAT 94
[2023-10-21 05:10] LABS: Hematocrit 36.7 % (42.0-52.0); Hemoglobin 12.5 g/dL (14.0-18.0); Mean Corpuscular HGB Conc 34.1 g/dl (32-36); Mean Corpuscular Hemoglobin 30.3 pg (26-34); Mean Corpuscular Volume 89.1 fl (80-100); Mean Platelet Volume 10.2 fl (7.4-10.4); Platelet Count Result 192 k/mm3 (150-375); Red Blood Count 4.12 M/mm3 (4.6-6.20); Red Cell Distribution Width 12.1 % (11.5-14.5); White Blood Count 9.2 K/mm3 (4.5-10.0)
[2023-10-21 05:22] LABS: Anion Gap 3 mmol/L (4-12); Blood Urea Nitrogen 12 mg/dL (9-20); Calcium 8.6 mg/dL (8.4-10.2); Carbon Dioxide 31 mmol/L (22-30); Chloride 102 mmol/L (98-107); Estimated CRCL calculation 79 ml/min; Estimated Glomerular Filt Rate > 60; Glucose 125 mg/dL (65-110); Potassium 4.2 mmol/L (3.4-5.0); Sodium 136 mmol/L (137-145)
[2023-10-21] MEDS: carBAMazepine 200 MG TABLET PO ×2 (05:32→14:29)
[2023-10-21] MEDS: oxyCODONE/ACETAMINOPHEN (*CRX) 5-325 MG TABLET 1 TABLET PO ×2 (05:36→11:36)
[2023-10-21] MEDS: ENOXAPARIN 30 MG/0.3 ML SYRINGE SUB-Q (08:38)
[2023-10-21] MEDS: levETIRAcetam 500 MG TABLET PO (08:38)
[2023-10-21 09:06] VITALS: BP 132/62; PULSE 62; RESP 18; TEMP 36.4; O2SAT 95
--- NOTE | 2023-10-21 14:03 | PM.DS ---
DS: Admitting Diagnosis Discharge Date 10/21/23 Admitting Diagnosis Chronic cholecystitis, cholelithiasis Umbilical hernia Epilepsy DS: Discharge Diagnosis Discharge Diagnosis (1) Recurrent ventral hernia with incarceration: Code(s): K43.0 - Incisional hernia with obstruction, without gangrene Status: Acute Assessment and Plan: Patient taken to surgery for outpatient laparoscopic cholecystectomy with incidental umbilical hernia repair. Cholecystectomy showed a very inflamed gallbladder and a large gallstone as well as fatty liver. Umbilical hernia was a 3.3 cm defect and was repaired primarily. In the outpatient step-down area, it was noted that the hernia was bulging and swollen. After evaluation, CT scan showed a recurrent hernia with bowel in the hernia sac. No history of coughing or significant abdominal straining are known. At surgery, there was evidence of broken, lose Ethibond fascial sutures with some evidence of fascial tearing as well. There was bowel incarcerated in the hernia sac as well. The recurrent hernia was a 4 x 4 cm defect. It was repaired with mesh. Patient was observed overnight and was able to go home the next day in good condition. (2) Umbilical hernia: Qualifiers: Obstruction and gangrene presence: without obstruction or gangrene Qualified Code(s): K42.9 - Umbilical hernia without obstruction or gangrene Code(s): K42.9 - Umbilical hernia without obstruction or gangrene Status: Chronic Assessment and Plan: Repaired incidentally with laparoscopic cholecystectomy. It was larger than expected at 3.3 cm. The repair broke open resulting in a larger incarcerated recurrent hernia in the perioperative period. See above. (3) Chronic calculous cholecystitis: Code(s): K80.10 - Calculus of gallbladder with chronic cholecystitis without obstruction Status: Chronic Assessment and Plan: Laparoscopic cholecystectomy performed without difficulty on 10/20/2023 (4) Seizure disorder: Code(s): G40.909 - Epilepsy, unspecified, not intractable, without status epilepticus Status: Chronic Assessment and Plan: No seizures. Continued seizure medication during hospital stay DS: Summary Hospital Course Hospital Course: Patient taken to surgery for outpatient laparoscopic cholecystectomy with incidental umbilical hernia repair. Cholecystectomy showed a very inflamed gallbladder and a large gallstone as well as fatty liver. Umbilical hernia was a 3.3 cm defect and was repaired primarily. In the outpatient step-down area, it was noted that the hernia was bulging and swollen. After evaluation, CT scan showed a recurrent hernia with bowel in the hernia sac. No history of coughing or significant abdominal straining are known. At surgery, there was evidence of broken, lose Ethibond fascial sutures with some evidence of fascial tearing as well. There was bowel incarcerated in the hernia sac as well. The recurrent hernia was a 4 x 4 cm defect. It was repaired with mesh. Patient was observed overnight and was able to go home the next day in good condition. He was tolerating a low-fiber diet well and comfortable with only oral analgesics. Status at Discharge Functional status at discharge: independent ambulation Overall status at discharge: patient is progressing back to baseline Time Spent with Patient Time attestation: Total time spent providing and/or coordinating discharge services: Time spent: Less than 30 minutes DS: Data Data Completed and Pending Completed studies during hospitalization: Pending at discharge 10/20/23 10:06 Surgical [PTH] Routine Labs on day of discharge: Labs from last 24 hours 10/21/23 04:37 WBC 9.2 RBC 4.12 L Hgb 12.5 L Hct 36.7 L MCV 89.1 MCH 30.3 MCHC 34.1 RDW 12.1 Plt Count 192 MPV 10.2 Sodium 136 L Potassium 4.2 Chloride 102 Carbon Dioxide 31 H Anion Gap 3 L BUN 12 Cr
== END 2023-10-21 14:33 | disposition home or self-care (01) ==
LOC: ANHSURGERY 19:24 → ANH2MED 19:28
PROVIDERS: PCP Family Medicine; Visit Provider Surgery
PROC: 0FT44ZZ Resection of Gallbladder, Percutaneous Endoscopic Approach (ICD-10-PCS; CPT 47562; principal; 2023-10-20 09:30)
PROC: (CPT 47562; principal; 2023-10-20 16:00)
DX: K80.10 Calculus of gallbladder with chronic cholecystitis without obstruction (principal); K43.0 Incisional hernia with obstruction, without gangrene; K42.9 Umbilical hernia without obstruction or gangrene; T81.32XA Disruption of internal operation (surgical) wound, not elsewhere classified, initial encounter; Y83.8 Other surgical procedures as the cause of abnormal reaction of the patient, or of later complication, without mention of misadventure at the time of the procedure; K76.0 Fatty (change of) liver, not elsewhere classified; R00.1 Bradycardia, unspecified; I49.3 Ventricular premature depolarization; G40.909 Epilepsy, unspecified, not intractable, without status epilepticus; M47.816 Spondylosis without myelopathy or radiculopathy, lumbar region
CPT/HCPCS: 47562; 49616; 36415; 74176; 80048; 80076; 80156; 82150; 83690; 85027; 88304; 93005; A9270; C1781; J0330; J0690; J1100; J1170; J1596; J1650; J1885; J2704; J3010; J7120

== ENCOUNTER 2024-03-31 10:14 | Outpatient (CLI) | payer MEDICARE, SELFPAY ==
--- NOTE | ~2024-03-31 | XR_ITS ---
EXAMINATION: CT abdomen pelvis wo con, XR abdomen/kub 1V DATE: 03/31/2024 10:44 INDICATION: Left ureteral stone TECHNIQUE: 1. Computed tomography (CT) of the abdomen and pelvis was performed without intravenous contrast. Aut omated exposure control and iterative reconstruction technique were employed. The dose-length product was 347.83 mGy-cm. 2. AP view of the abdomen and pelvis was obtained on 2 radiographs. COMPARISON: 10/20/2023 FINDINGS: CT: Mild bibasilar atelectasis. Small calcified nodule in the right lower lobe consistent with old granul omatous disease. Heart size is normal. Atherosclerotic coronary artery calcification is. No pericardi al or pleural effusion. A few cysts scattered throughout the liver measuring up to 2.0 cm. Cholecyste ctomy clips the gallbladder fossa. There are a few splenic calcific lesions consistent with old granu lomatous disease. Pancreas and bilateral adrenal glands are normal. There are couple stones in the di stal left ureter the more caudal proximal 1 cm from the ureterovesicular junction measuring 6 mm and an immediately more cephalad stone measuring 4 mm. Additional 1 mm nonobstructing stone at the lower pole the left kidney. Bilateral kidneys are otherwise unremarkable with no hydronephrosis or right-si ded urolithiasis. There is mild colonic diverticulosis with a sigmoid predominance. There is no adjac ent inflammatory change to suggest diverticulitis. Small bowel and appendix are normal. Postoperativ e change of interval umbilical hernia repair. Bladder is normal. Marked prostatomegaly measuring 6.4 x 6.3 x 6.1 cm. No free intraperitoneal gas or fluid. No pathologically enlarged abdominal or pelvic lymphadenopathy. Mild to moderate lumbar and lower thoracic spondylosis. KUB: The distal left ureteral stones can be seen projecting along the lateral margin of the inferior sacru m. There are few phleboliths caudally in the left hemipelvis. Cholecystectomy clips in right upper qu adrant. Normal bowel gas pattern. IMPRESSION: 1. Left nephrolithiasis including a couple stones measuring 6 mm and 4 mm in the distalmost left uret er visible on KUB but without hydronephrosis. 2. Prostatomegaly. Reviewed, dictated and finalized at location A. SPECIALIST IMPRESSION: 1. Left nephrolithiasis including a couple stones measuring 6 mm and 4 mm in th e distalmost left ureter visible on KUB but without hydronephrosis. 2. Prostatomegaly.
--- OUTSIDE RECORDS SUMMARY | 2024-03-31 10:46 | XMS_ITS | Data Portability ---
Author Organization [facility], [address] [place] [address] ([place]) Address [address] [address] Care Team Providers Care Strap Buckler Machine Name Role Phone NATAN STARKS Primary Care Provider Assessment Encounter Date Assessment Date Assessment LastModified by Organization Details LastModified Time 10/14/2023 10/14/2023 1. Benign seborrheic keratoses. No treatment today. 2. Moles are stable. 3. Prurigo? s- Treated with cryo. Tolerated. 4. Solar elastosis- discussed the importance of using sunscreen SPF 30 as well as wearing a wide brimmed hat. Monitor for anything new or changing. I did recommend yearly full-body skin checks. SK skaleiwahea Not available 10/14/2023 21:18:03 Plan of Treatment Reminders Order Date Submit Date Provider Last Modified By Organization Details Last Modified Time Details Appointments Establi shed Patient 15.EST 2024 02:30P M Roseanne Atkinson Not available Not available Not available Lab None recorde d. Referral None recorde d. Procedures None recorde d. Surgeries None recorde d. Imaging None recorde d. Medication Orders None recorde d. Patient TargetsNo targets recorded. Patient InstructionsNo instructions recorded. Reason for Referral None Reported. Problems Name Problem SNOMED Code Status Onset Date Resolution Date Notes Provider Name and Address Organization Details Recorded Time Seborrheic keratosis 987172777 Completed 202310/13/2023 Roseanne Aviles r, PROFESSOR OF POLITICAL SCIENCE, MEASUREMENT ANALYST [address] [place] [address], [phone] , [facility] 15:42:35 Chronic effect of ultraviolet radiation on normal skin [id number] Completed 202310/13/2023 Roseanne pearl APRN, MEASUREMENT ANALYST [address] [facility], [place], [phone], [facility] 4 15:43:13 Seborrheic keratosis 232324613 Active 2023 Roseanne pearl APRN, MEASUREMENT ANALYST [address] [facility], [place], [phone], [facility] 4 15:42:35 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 Medical Equipment None Reported. Allergies Allergen ID Allergen Name Allergen Category Reaction Reaction Severity Criticality Documentation Date Start Date Code Code System Note Provider Name and Address Organization Details Recorded Time [id number] clindamyc in Not available rash Not available Not available 05/18/20232022 2582 RxNorm React ion: Rash; Not Available Not Available Not Available Medications Name Sig Start Date Stop Date Status Note LastModified by Organization Details LastModified Time sildenafil 50 mg tablet active Not Available Not Available No t Available levetiracetam 500 mg tablet active Not Available Not Availabl e Not Available carbamazepine 200 mg tablet active Not Available Not Availabl e Not Available Vitals None Recorded Social History None recorded. Functional Status None recorded. Mental Status None recorded. Family History Nothing Reported. Medical History No medical history recorded. Past Encounters Encounter ID Performer Location Encounter Start Date Encounter Closed Date Diagnosis/Indication Diagnosis SNOMED-CT Code Diagnosis ICD10 Code [id number] Roseanne Atkinson APRN, MEASUREMENT ANALYST [facility] ([place]) [address] [place] [phone] 10/14/2023 14:30:13 10/14/2023 15:45:22 Seborrheic keratosis [id number] L82.1 Prurigo nodularis 824515 00 L28.1 Benign alonso plasm of skin of trunk 52957126 D23.5 Chronic ef fect of ultraviolet radiation on normal skin 494556648 L57.8 Health Concerns Section Related Observation LastModified by Organization Detai ls LastModified Time None Recorded Concern Status LastModified by Organization Details LastModified Time None Recorded Advance Directives Directive None Recorded Payers Encounter Date Sequence Insurance Name Policy Number Policy Carver Covered Member ID Carver Member ID Guarantor Name 10/14/2023 1 [employer] (MEDICARE REPLACEMENT PPO) [id number] Guilherme Angeles [id number] Guilherem Angeles Notes Date Note Type Note Provider Name and Address Organization Details Recorded Time 10/14/2023 text/html A 72 -year-old male patient here today for a full-body skin check. He is concerned about a lesion on the right and left neck. He finds himself picking at these lesions. Roseanne Atkinson APRN, MEASUREMENT ANALYST [address] [place] [address], [phone], [facility] 10/15/2023 11:36:45
== END 2024-03-31 10:15 | disposition home or self-care (01) ==
PROVIDERS: PCP Family Medicine; Visit Provider Urology
DX: N20.2 Calculus of kidney with calculus of ureter (principal); N40.0 Benign prostatic hyperplasia without lower urinary tract symptoms
CPT/HCPCS: 74018; 74176

== ENCOUNTER 2024-04-02 11:26 | Outpatient (CLI) | payer MEDICARE, SELFPAY ==
--- OUTSIDE RECORDS SUMMARY | 2024-04-06 09:22 | XMS_ITS | Clinical Summary ---
Author Organization [facility] Address [address] [place] [address]. [place], [place] [address] [place] [address] Care Team Providers Care Adoption Social Worker Name Role Phone Jerardo Jeff MD Primary Care Provider Allergies Active Allergy Reactions Criticality Noted Date Comments Clindamycin Rash Low 07/18/2022 Medications levETIRAcetam (KEPPRA) 500 MG tablet Take 1 tablet (500 mg total) by mouth daily. Pt weaning off Active carBAMazepine (TEGRETOL) 200 MG tablet Take 1 tablet (200 mg total) by mouth 3 (three) times daily. Active Active Problems No known active problems Social History Tobacco Use Types Packs/Day Years Used Date Smoking Tobacco: Never Smokeless Tobacco: Never Tobacco Cessation:Counseling Given: Not Answered Alcohol Use Standard Drinks/Week Comments Not Currently 0 (1 standard drink = 0.6 oz pur e alcohol) Sex and Gender Information Value Date Recorded Sex Assigned at Not on file Legal Sex Male 9:16 PM CDT Gender Identity Not on file Sexual Orientation Not on file Last Filed Vital Signs Vital Sign Reading Time Taken Comments Blood Pressure 150/86 10/26/2023 9:43 AM CDT Pulse 51 10/26/2023 10:40 AM CDT Temperature 36.4 ??C (97.6 ??F) 10/26/2023 9:43 AM CD T Respiratory Rate 15 10/26/2023 10:40 AM CDT Oxygen Saturation 98% 10/26/2023 9:43 AM CDT Inhaled Oxygen Concentration - - Weight 93 kg (205 lb) 10/26/2023 9:43 AM CDT Height 177.8 cm (5' 10 ) 10/26/2023 9:43 AM CDT Body Mass Index 29.41 10/26/2023 9:43 AM CDT Plan of Treatment Health Maintenance Due Date Last Done Comments Colorectal Cancer Screening Colonoscopy (10 Years) 1950 Hepatitis C 11/05/1969 DTaP, Tdap and Td Vaccines ( 1 - Tdap) 11/05/1970 Annual Medicare Wellness Visit 11/05/2016 Pneumococcal Vaccine: 65+ Years (1 of 1 - PCV) 11/05/2016 COVID-19 Vaccine (2 - 2023-2 5 season) 2023 07/28/2020 Influenza Adult (#1) 2024 02/27/2020 RSV Immunization or 60+ Years (1 - 1-dose 75+ series) 11/05/2026 Zoster Vaccines Completed 05/15/2020, 02/27/2020 Meningococcal Vaccine Aged Out No pilo eun eligible based on patient's age to complete this topic RSV Immunizations Under 20 Months Aged Out No longer eligible b ased on patient's age to complete this topic Medical Devices Implanted Type Area Nursing Home Assistant Device Identifier Shelf Expiration Date Model / Serial / Lot Iol [employer]ec[employer] Simplicity Dcb00 - [id number] Implanted:Qty: 1 on 07/23/2022 by Gabi Gutierrez MD at [facility] Lens Right: Eye [employer] DCB00 01/10/2025 DCB00 / / NONE Insurance [employer] Advance Directives Documents on File Type Date Recorded Patient Spanish Professor Expl anation Advance Directives and Living Will 04/03/2021 12:00 AM ADVANCED DIRECTIVES Care Teams Adoption Social Worker Relationship Specialty Start Date End Date Jerardo Jeff MD [address] [place] [address] PCP - General FAMILY PRACTICE 07/23/22
--- OUTSIDE RECORDS SUMMARY | 2024-04-06 09:22 | XMS_ITS | Encounter Summary ---
Author Organization [facility] Address [address] [place] [address]. [place], [place] [address] [place] [address] Care Team Providers Care Mounting Machine Operator Name Role Phone Jerardo Jeff MD Primary Care Provider [phone] Encounter Details Date Type Department Care Team (Latest Contact Info) Description 10/26/2023 Travel Social History Tobacco Use Types Packs/Day Years Used Date Smoking Tobacco: Never Smokeless Tobacco: Never Alcohol Use Standard Drinks/Week Comments Not Currently 0 (1 standard drink = 0.6 oz pur e alcohol) Sex and Gender Information Value Date Recorded Sex Assigned at Not on file Legal Sex Male 9:16 PM CDT Gender Identity Not on file Sexual Orientation Not on file documented as of this encounter Plan of Treatment Not on file documented as of this encounter Visit Diagnoses Not on filedocumented in this encounter Care Teams Mounting Machine Operator Relationship Specialty Start Date End Date Jerardo Jeff MD [address] [place] [address] PCP - General FAMILY PRACTICE 07/23/22 documented as of this encounter
--- OUTSIDE RECORDS SUMMARY | 2024-04-06 09:22 | XMS_ITS | Data Portability ---
Author Organization [facility], [address] [place] [address] ([place]) Address [address] [address] Care Team Providers Care Supervisor Cigarette Making Department Name Role Phone NATAN STARKS Primary Care [...] Address Organization Details Recorded Time Seborrheic keratosis [id number] Completed 202310/13/2023 Roseanne Aviles r, TECHNOLOGY INFUSION SPECIALIST, DONKEY ENGINE FIRER/FIREMAN [address] [place] [address], [phone] , [facility] 15:42:35 Chronic effect of ultraviolet radiation on normal skin 176138915 Completed 202310/13/2023 Roseanne pearl APRN, DONKEY ENGINE FIRER/FIREMAN [address] [facility], [place], [address], [facility] 4 15:43:13 Seborrheic keratosis 002046423 Active 2023 Roseanne pearl APRN, DONKEY ENGINE FIRER/FIREMAN [address] [facility], [place], [address], [facility] 4 15:42:35 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 Roseanne pearl APRN, DONKEY ENGINE FIRER/FIREMAN [address] [facility], [place], [address], [facility] 4 15:42:47 Benign neoplasm of skin of trunk 64810041 Active 2023 Roseanne pearl APRN, DONKEY ENGINE FIRER/FIREMAN [address] [facility], [place], [address], [facility] 4 15:42:58 Chronic effect of ultraviolet radiation on normal skin 284281304 Active 2023 Roseanne pearl APRN, DONKEY ENGINE FIRER/FIREMAN [address] [place] [address], [phone], [facility] 4 15:43:13 Problem Notes None recorded. Medical Equipment None Reported. Allergies Allergen ID Allergen Name Allergen Category Reaction Reaction Severity Criticality Documentation Date Start Date Code Code System Note Provider Name and Address Organization Details Recorded Time [id number] clindamyc in Not available rash Not [...] Diagnosis/Indication Diagnosis SNOMED-CT Code Diagnosis ICD10 Code [id number] Roseanne Atkinson APRN, DONKEY ENGINE FIRER/FIREMAN [facility] ([place]) [address] [place] [address] 10/14/2023 14:30:13 10/14/2023 15:45:22 Seborrheic keratosis 960851149 L82.1 Prurigo nodularis 870597 00 L28.1 Benign alonso plasm of skin of trunk 86234818 D23.5 Chronic ef fect of ultraviolet radiation on normal skin 004893835 L57.8 Health Concerns Section Related Observation LastModified by Organization Detai ls LastModified Time None Recorded Concern Status LastModified by Organization Details LastModified Time None Recorded Advance Directives Directive None Recorded Payers Encounter Date Sequence Insurance Name Policy Number Policy Carver Covered Member ID Carver Member ID Guarantor Name 10/14/2023 1 [employer] (MEDICARE REPLACEMENT PPO) [id number] Guilherme Angeles [id number] Guilherme Angeles Notes Date Note Type Note Provider Name and Address Organization Details Recorded Time 10/14/2023 text/html A 72 -year-old male patient here today for a full-body skin check. He is concerned about a lesion on the right and left neck. He finds himself picking at these lesions. Roseanne Atkinson APRN, DONKEY ENGINE FIRER/FIREMAN [address] [place] [address], [phone], [facility] 10/15/2023 11:36:45
--- OUTSIDE RECORDS SUMMARY | 2024-04-06 09:23 | XMS_ITS | Encounter Summary ---
Author Organization [facility] Address [address] [place] [address]. [place] [address] [place] [address] Care Team Providers Care Oil Well Service Operator Name Role Phone Unavailable Primary Care Provider Unavailabl e Encounter Details Date Type Department Care Team (Late st Contact Info) Description 08/10/2013 Abstract [facility] [address] [place] [address] , Brendon Albright MD Social History Tobacco Use Types Packs/Day Years Used Date Smoking Tobacco: Never Sex and Gender Information Value Date Recorded Sex Assigned at Not on file Legal Sex Male 9:16 PM CDT Gender Identity Not on file Sexual Orientation Not on file documented as of this encounter Last Filed Vital Signs Vital Sign Reading Time Taken Comments Blood Pressure 120/75 08/10/2013 11:07 AM CDT Pulse 72 08/10/2013 11:07 AM CDT Temperature - - Respiratory Rate 14 08/10/2013 11:07 AM CDT Oxygen Saturation - - Inhaled Oxygen Concentration - - Weight 80.7 kg (178 lb) 08/10/2013 11:07 AM CDT Height 180.3 cm (5' 11 ) 08/10/2013 11:07 AM CDT Body Mass Index 24.83 08/10/2013 11:07 AM CDT documented in this encounter Plan of Treatment Not on file documented as of this encounter Visit Diagnoses Not on filedocumented in this encounter
--- OUTSIDE RECORDS SUMMARY | 2024-04-06 09:23 | XMS_ITS | Encounter Summary ---
Author Organization [facility] Address [address] [place] [address]. [place], [place] [address] [place] [address] Care Team Providers Care Freight Brake Operator Name Role Phone Unavailable Primary Care Provider Unavailabl e Encounter Details Date Type Department Care Team (Late st Contact Info) Description 12/12/2002 Abstract [place] [address] , Brendon Albright MD Social History Tobacco Use Types Packs/Day Years Used Date Smoking Tobacco: Never Assessed Sex and Gender Information Value Date Recorded Sex Assigned at Not on file Legal Sex Male 9:16 PM CDT Gender Identity Not on file Sexual Orientation Not on file documented as of this encounter Plan of Treatment Not on file documented as of this encounter Visit Diagnoses Not on filedocumented in this encounter
--- OUTSIDE RECORDS SUMMARY | 2024-04-06 09:23 | XMS_ITS | Encounter Summary ---
Author Organization [facility] Address [address] [place] [address]. [place] [address] [place] [address] Care Team Providers Care Weapons And Tactics Instructor Name Role Phone RichartJerardo MD Primary Care Provider [phone] Reason for Visit * Auth/Cert (Routine) Specialty Diagnoses / Procedures Referred By Michelle rachel Referred To Contact Diagnoses Cataract of right eye, unspecified cataract type Right eye cataract Procedures REMV CATARACT EXTRACAP,INSERT LENS CATARACT REMOVAL WITH IOL IMPLANT Gabi Gutierrez MD [address] [place] [address] Phone: tel: fax: Referral ID Status Reason Start Date Expiration Date Visits Re quested Visits Authorized [id number] 1 1 Encounter Details Date Type Department Care Team (Late st Contact Info) Description 07/23/2022 8:19 AM CDT Anesthesia Event [facility] [address] [facility] [place] [address] Fortunato Barboza CRNA [address] [facility] [address] [place] [address] Anesthesia Record Procedure Summary Procedure Name Responsible Anesthesiologist Anesthesia Start Time Anesthesia Stop Time CATARACT REMOVAL WITH IOL IMPLANT (Right: Eye) 07/23/22 0819 07/23/22 0847 Events Date Time Event Comment 07/23/2022 0801 0801 AN LONGWALL MACHINE OPERATOR HELPER Prepped 0819 An Start Patient ID and consent checked and patient reassessed. 0819 An Start Data 0819 AN Immediate Reassess The pa tient was reevaluated immediately before sedation or regional anesthesia. 0819 Anesthesia Ready 0847 An Stop 0847 an stop data Meds Name Total ketamine 10 mg/mL injection 15 mg midazolam 2 mg/2 mL injection 2 mg lactated ringers infusion 0 mL * Agents Name O2 N2O * Blood No blood administrations on file. Lines, Drains, and Airways Type Details Placement Removal Peripheral IV Placement Date: 09/09; Placement Time: 743; Placed Outside of This Facility?: No; Size: 20 G; Orientation: Left; Location: Antecubital; Site Prep: Chlorhexidine; Insertion attempts: 1; Ultrasound-guided Placement?: No; Patient Tolerance: Tolerated well; Removal Date: 07/23/22; Removal Time: 899; Removal Reason: Patient Discharged 07/23/22743 by Pippa Morgan RN 07/23/22899 by Pippa Morgan RN documented in this encounter Social History Tobacco Use Types Packs/Day Years Used Date Smoking Tobacco: Never Smokeless Tobacco: Never Alcohol Use Standard Drinks/Week Comments Not Currently 0 (1 standard drink = 0.6 oz pur e alcohol) Sex and Gender Information Value Date Recorded Sex Assigned at Not on file Legal Sex Male 9:16 PM CDT Gender Identity Not on file Sexual Orientation Not on file COVID-19 Exposure Response Date Recorded In the last 10 days, have yo u been in contact with someone who was confirmed or suspected to have Coronavirus/COVID-19? No / Unsure 07/23/2022 7:07 AM CDT documented as of this encounter OR Notes * Anesthesia Postprocedure Evaluation - Anitha Gonzalez CRNA - 07/23/2022 8:48 AM CDT Anesthesia Post-op Note Guilherme Angeles Procedure(s): CATARACT REMOVAL WITH IOL IMPLANT (Right: Eye) Anesthesia type: MAC Vitals: 07/23/22718 BP: (!) 157/88 Vitals: 07/23/22718 Pulse: (!) 54 Vitals: 07/23/22718 Resp: 16 Vitals: 07/23/22718 Temp: 36.3 ??C Vitals: 07/23/22718 SpO2: 95% Patient Location: PACU Level of Consciousness: awake Pain Management: adequate analgesia Airway Patency: patent Respiratory Status: acceptable Cardiovascular Status: acceptable Post-Op Nausea: none Postoperative Hydration: euvolemic There were no known notable events for this encounter. * Anesthesia Preprocedure Evaluation - Anitha Gonzalez CRNA - 07/16/2022 9:43 PM CDT Anesthesia ROS/MED History Reviewed: Patient summary , Medications Pre-Anesthetic State: Pulmonary Cardiovascular Neuro/Psych (+) seizures GI/Hepatic/Renal Endo/Other Physical Evaluation Airway Mallampati: III TM Distance: <3 FB Neck ROM: normal Dental (partial upper) No notable dental history Pulmonary Breath sounds clear to auscultation Cardiovascular Rhythm: regular Anesthesia Plan ASA 2 Intravenous Induction Anesthesia type: MAC Plan for Airway: nasal cannula/simple face mask Plan for Post-op Pain Plan: as per surgeon Informed Consent Anesthetic plan and risks discussed with patient of whom consent was obtained. . documented in this encounter Plan of Treatment Not on file documented as of this encounter Visit Diagnoses Not on filedocumented in this encounter Administered Medications Inactive Administered Medications - up to 3 most recent administrations Medication Order MAR Action Action Date Dose Rate Site ketamine (KETALAR) injection Intravenous, PRN, Starting on Thu07/23/22 at 0820, Until Thu07/23/22 at 0847, Anesthesia Intra-Op Given 07/23/2022 8:20 AM CDT 15 mg lactated ringers infusion at 10 mL/hr, Intravenous, Continuous, Starting on Thu07/23/22 at 0730, Until Thu07/23/22 at 1119, Infuse at TKO rate, Pre-Op Continued by Anesthesia 07/23/2022 8:19 AM CDT 10 mL/hr New Bag 07/23/2022 7:44 AM CDT 10 mL/hr midazolam (VERSED) injection Intravenous, PRN, Starting on Thu07/23/22 at 0821, Until Thu07/23/22 at 0847, Anesthesia Intra-Op Given 07/23/2022 8:21 AM CDT 2 mg documented in this encounter Care Teams Weapons And Tactics Instructor Relationship Specialty Start Date End Date Jerardo Jeff MD [address] [place] [address] PCP - General FAMILY PRACTICE 07/23/22 documented as of this encounter
--- OUTSIDE RECORDS SUMMARY | 2024-04-06 09:23 | XMS_ITS | Encounter Summary ---
Author Organization [facility] Address [address] [place] [address]. [place] [id number] [place], [place] [id number] Care Team Providers Care Blood Collector Name Role Phone Jerardo Jeff MD Primary Care Provider [phone] Encounter Details Date Type Department Care Team (Latest Contact Info) Description 07/23/2022 Travel Social History Tobacco Use Types Packs/Day [...] AM CDT documented as of this encounter Plan of Treatment Not on file documented as of this encounter Visit Diagnoses Not on filedocumented in this encounter Care Teams Blood Collector Relationship Specialty Start Date End Date Jerardo Jeff MD [address] [place] [address] PCP - General FAMILY PRACTICE 07/23/22 documented as of this encounter
--- OUTSIDE RECORDS SUMMARY | 2024-04-06 09:23 | XMS_ITS | Encounter Summary ---
Author Organization [facility] Address [address] [place] [address]. [place], [place] [address] [place] [address] Care Team Providers Care Citrix Systems Administrator Name Role Phone Unavailable Primary Care Provider Unavailabl e Encounter Details Date Type Department Care Team (Late st Contact Info) Description 10/15/[address] [facility] [address] [place] [address] Jerardo Jeff MD [address] [place] [address] Social History Tobacco Use Types Packs/Day Years Used Date Smoking Tobacco: Never Assessed Sex and Gender Information Value Date Recorded Sex Assigned at Not on file Legal Sex Male 9:16 PM CDT Gender Identity Not on file Sexual Orientation Not on file documented as of this encounter Plan of Treatment Not on file documented as of this encounter Visit Diagnoses Diagnosis Benign neoplasm of colon documented in this encounter
--- OUTSIDE RECORDS SUMMARY | 2024-04-06 09:23 | XMS_ITS | Encounter Summary ---
Author Organization [facility] Address [address] [place] [address]. [place], [place] [address] [place] [address] Care Team Providers Care Pomology Teacher Name Role Phone Unavailable Primary Care Provider Unavailabl e Encounter Details Date Type Department Care Team (Late st Contact Info) Description 08/09/2013 [facility] [address] [place] [address] , Brendon Albright MD Social History Tobacco [...]
--- OUTSIDE RECORDS SUMMARY | 2024-04-06 09:23 | XMS_ITS | Encounter Summary ---
Author Organization [facility] Address [address] [place] [address]. [place] [address] [place] [address] Care Team Providers Care Boring Machine Set Up Operator Name Role Phone Jerardo Jeff MD Primary Care Provider [phone] Reason for Visit * Auth/Cert (Routine) Specialty Diagnoses / Procedures Referred By Michelle rachel Referred To Contact Diagnoses Cataract of right eye, unspecified cataract type Right eye cataract Procedures REMV CATARACT EXTRACAP,INSERT LENS CATARACT REMOVAL WITH IOL IMPLANT Gabi Gutierrez MD [address] [place] [address] Phone: tel: fax: Referral ID Status Reason Start Date Expiration Date Visits Re quested Visits Authorized [id number] 1 1 Encounter Details Date Type Department Care Team (Late st Contact Info) Description 07/23/2022 8:30 AM CDT - 07/23/2022 9:00 AM CDT Surgery [facility] [address] [place] [address] Gabi Gutierrez MD [address] [place] [address] CATARACT REMOVAL WITH IOL IMPLANT Surgery Details Date/Time Status Location OR Service Patient Class Case Class Case Type Trauma Case? 07/23/2022 8:30 AM Posted [facility] OR OR 2 Ophthalmology Short Stay/Outpat ient Surgery No Panel 1 Procedure LRB Anes Op Region Wound Class Comments CATARACT REMOVAL WITH IOL IMPLANT Right Monitor Anesthesia Care Eye Clean Surgeon Surgeon Role Service Panel Gabi Gutierrez MD Primary Ophthalmology 1 Case Notes 0715 documented in this encounter Social History Tobacco [...] AM CDT documented as of this encounter Last Filed Vital Signs Vital Sign Reading Time Taken Comments Blood Pressure 161/92 07/23/2022 8:54 AM CDT Pulse 61 07/23/2022 8:54 AM CDT Temperature 36.3 ??C (97.3 ??F) 07/23/2022 7:19 AM CD T Respiratory Rate 16 07/23/2022 8:54 AM CDT Oxygen Saturation 97% 07/23/2022 8:54 AM CDT Inhaled Oxygen Concentration - - Weight 97.1 kg (214 lb) 07/23/2022 7:19 AM CDT Height 177.8 cm (5' 10 ) 07/23/2022 7:19 AM CDT Body Mass Index 30.71 07/23/2022 7:19 AM CDT documented in this encounter Medications at Time of Discharge carBAMazepine (TEGRETOL) 200 MG tablet Take 1 tablet (200 mg total) by mouth 3 (three) times daily. levETIRAcetam (KEPPRA) 500 MG tablet Take 1 tablet (500 mg total) by mouth daily. Pt weaning off magnesium oxide (MAG-OX) 400 (240 Mg) MG tablet Take 1 tablet (400 mg total) by mouth daily. 10/26/2023 [facility]ODUCT OP Take 1 Scoop by mouth daily. [place] lean belly juice 10/26/2023 [facility] IJ 10/26/2023 VITAMIN B COMPLEX-C OR Take 100 mcg by mouth daily. 10/26/2023 vitamin C (ASCORBIC ACID) 250 MG tablet Take 2 tablets (500 mg total) by mouth daily. 10/26/2023 zinc sulfate (ZINCATE) 220 MG capsule Take 2 capsules (440 mg total) by mouth daily. 10/26/2023 documented as of this encounter H&P Notes * Gabi Gutierrez MD - 07/23/2022 8:09 AM CDT HISTORY AND PHYSICAL INTERVAL NOTE: I have reviewed Guilherme Angeles History & Physical which was performed within the past 30 days. After examining Guilherme Angeles, no change has occurred in the patient's condition since the H&P was completed. Informed Consent Discussion: Potential benefits, risks, and side effects of the patient's procedure/surgery; the likelihood of the patient achieving his or her goals; and any potential problems that might occur during recuperation were discussed with the patient/family/personal sales representative meats. Reasonable alternatives to the patient's proposed procedure/surgery including benefits, risks, and side effects related to the alternatives and the risks related to not receiving the proposed care were also discussed with the patient/family/personal sales representative meats. Questions were answered and the patient/family/personal sales representative meats verbalized understanding and desires to proceed. Source Note - Zscanned, Documents - 07/11/2022 11:05 AM CDT documented in this encounter Nursing Notes * Pippa Morgan RN - 07/23/2022 9:08 AM CDT Verbal and written discharge instructions for Dr. Gutierrez given to patient and his . Questions answered. Both verbalizes understanding. documented in this encounter OR Notes * Brief Op Note - Gabi Gutierrez MD - 07/23/2022 8:49 AM CDT Patient: Guilherme Angeles 1950 [id number] Preoperative Diagnosis: Visually significant cataract Postoperative Diagnosis: Visually significant cataract Procedure: Cataract Extraction with Intraocular Lens Placement, RIGHT Eye Surgeon: Gabi Gutierrez MD Cushion Sewer: none Anesthesia: Monitor Anesthesia Care Implant: Implant Name Type Inv. Item Serial No. Rotary Slicing Machine Operator Lot No. LRB No. Used Action IOL TECNIS SIMPLICITY DCB00 - [id number] Lens IOL TECNIS SIMPLICITY DCB00 [employer] VISION [employer] NONE Right 1 Implanted Specimen: none Estimated Blood Loss: minimal Procedure in detail: Please see full operative note for details. Disposition: Patient was taken to the recovery in stable condition. Gabi Gutierrez MD 07/23/2022 8:49 AM documented in this encounter Plan of Treatment Not on file documented as of this encounter Procedures Procedure Name Priority Date/Time Associated Diagnosis Comments REMV CATARACT EXTRACAP,INSERT LENS 07/23/2022 8:13 AM CDT Cataract of right eye, unspecified cataract type Case Notes 0715 documented in this encounter Visit Diagnoses Diagnosis Cataract of right eye, unspecified cataract type documented in this encounter Administered Medications Inactive Administered Medications - up to 3 most recent administrations Medication Order MAR Action Action Date Dose Rate Site acetaZOLAMIDE ER (DIAMOX) 12 hr capsule 500 mg 500 mg, Oral, Once, 1 dose, On Thu07/23/22 at 0845, Upon return to [facility] or before discharge unless patient has sulfa allergy. Hold diamox if blood pressure is less than 100/60 mmHg and have patient take at 1800 on the night of surgery instead. Swallow capsule whole or it may be opened and the contents sprinkled on applesauce., Post-Op Given 07/23/2022 8:57 AM CDT 500 mg lactated ringers infusion at 10 mL/hr, Intravenous, Continuous, Starting on Thu07/23/22 at 0730, Until Thu07/23/22 at 1119, Infuse at TKO rate, Pre-Op Continued by Anesthesia 07/23/2022 8:19 AM CDT 10 mL/hr New Bag 07/23/2022 7:44 AM CDT 10 mL/hr lidocaine (PF) (XYLOCAINE) 1 % injection As needed, Starting on Thu07/23/22 at 0834, Until Thu07/23/22 at 0851, Intra-Op Given 07/23/2022 8:34 AM CDT 0.01 mLs moxifloxacin (VIGAMOX) 0.5 % ophthalmic solution 1 drop 1 drop, Right Eye, Every 10 min, 2 doses, First dose on Thu07/23/22 at 0730, Last dose on Thu07/23/22 at 0740, Instill in operative eye, Pre-Op Given 07/23/2022 7:45 AM CDT 1 drop Given 07/23/2022 7:35 AM CDT 1 drop phenylephrine (JACQUES-SYNEPHRINE) 10 % ophthalmic solution 1 drop 1 drop, Right Eye, Once as needed, Irritation, until dilated, 1 dose, Starting on Thu07/23/22 at 0712, Until Thu07/23/22 at 1119, Pre-Op proparacaine (ALCAINE) 0.5 % ophthalmic solution 1 drop 1 drop, Right Eye, Every 10 min, 2 doses, First dose on Thu07/23/22 at 0730, Last dose on Thu07/23/22 at 0740, In operative eye, Pre-Op Given 07/23/2022 7:45 AM CDT 1 drop Given 07/23/2022 7:35 AM CDT 1 drop tetracaine 0.5 % ophthalmic solution As needed, Starting on Thu07/23/22 at 0822, Until Thu07/23/22 at 0851, Intra-Op Given 07/23/2022 8:34 AM CDT 1 drop Given 07/23/2022 8:22 AM CDT 2 drops tropicamide 1%-phenylephrine 2.5% ophthalmic solution 1 drop 1 drop, Right Eye, Every 10 min, 2 doses, First dose on Thu07/23/22 at 0730, Last dose on Thu07/23/22 at 0740, Instill in operative eye, Pre-Op Given 07/23/2022 7:45 AM CDT 1 drop Given 07/23/2022 7:36 AM CDT 1 drop documented in this encounter Active and Recently Administered Medications Times are shown in CDT. Scheduled Medication Order 07/21/2022 07/22/2022 07/23/2022 acetaZOLAMIDE ER (DIAMOX) 12 hr capsule 500 mg (COMPLETED) 500 mg, Oral, Once, 1 dose, On Thu07/23/22 at 0845, Upon return to [facility] or before discharge unless patient has sulfa allergy. Hold diamox if blood pressure is less than 100/60 mmHg and have patient take at 1800 on the night of surgery instead. Swallow capsule whole or it may be opened and the contents sprinkled on applesauce., Post-Op 0857 (Given - Provid er: Pippa Morgan RN) moxifloxacin (VIGAMOX) 0.5 % ophthalmic solution 1 drop (COMPLETED) 1 drop, Right Eye, Every 10 min, 2 doses, First dose on Thu07/23/22 at 0730, Last dose on Thu07/23/22 at 0740, Instill in operative eye, Pre-Op 0735 (Given - Provid er: Pippa Morgan RN)0745 (Given - Provider: Pippa Morgan, RN) proparacaine (ALCAINE) 0.5 % ophthalmic solution 1 drop (COMPLETED) 1 drop, Right Eye, Every 10 min, 2 doses, First dose on Thu07/23/22 at 0730, Last dose on Thu07/23/22 at 0740, In operative eye, Pre-Op 0735 (Given - Provid er: Pippa Morgan RN)0745 (Given - Provider: Pippa Morgan, ANTON) tropicamide 1%-phenylephrine 2.5% ophthalmic solution 1 drop (COMPLETED) 1 drop, Right Eye, Every 10 min, 2 doses, First dose on Thu07/23/22 at 0730, Last dose on Thu07/23/22 at 0740, Instill in operative eye, Pre-Op 0736 (Given - Provid er: Pippa Morgan RN)0745 (Given - Provider: Pippa Morgan, RN) Continuous Medication Order 07/21/2022 07/22/2022 07/23/2022 lactated ringers infusion at 10 mL/hr, Intravenous, Continuous, Starting on Thu07/23/22 at 0730, Until Thu07/23/22 at 1119, Infuse at TKO rate, Pre-Op 0744 (New Bag - Prov ider: Pippa Morgan RN)0819 (Continued by Anesthesia - Provider: Anitha Gonzalez CRNA)0859 (Infusion Stop Time - Provider: Pippa Morgan, ANTON) PRN Medication Order 07/21/2022 07/22/2022 07/23/2022 lidocaine (PF) (XYLOCAINE) 1 % injection (CANCELED) As needed, Starting on Thu07/23/22 at 0834, Until Thu07/23/22 at 0851, Intra-Op 0834 (Given - Provid er: Yumi Barboza RN) phenylephrine (JACQUES-SYNEPHRINE) 10 % ophthalmic solution 1 drop 1 drop, Right Eye, Once as needed, Irritation, until dilated, 1 dose, Starting on Thu07/23/22 at 0712, Until Thu07/23/22 at 1119, Pre-Op tetracaine 0.5 % ophthalmic solution (CANCELED) As needed, Starting on Thu07/23/22 at 0822, Until Thu07/23/22 at 0851, Intra-Op 0822 (Given - Provid er: Yumi Barboza RN)0834 (Given - Provider: Yumi Barboza RN) documented in this encounter Care Teams Boring Machine Set Up Operator Relationship Specialty Start Date End Date Jerardo Jeff MD [facility] [place] [address] PCP - General FAMILY PRACTICE 07/23/22 documented as of this encounter
--- OUTSIDE RECORDS SUMMARY | 2024-04-06 09:23 | XMS_ITS | Encounter Summary ---
Author Organization [facility] Address [address] [place] [address]. [place], [place] [id number] [place] [address] Care Team Providers Care Body Care Manager Name Role Phone Unavailable Primary Care Provider Unavailabl e Encounter Details Date Type Department Care Team (Late st Contact Info) Description 11/07/[address] [facility] [address] [place] [address] , Brendon Albright MD Social History Tobacco [...]
--- OUTSIDE RECORDS SUMMARY | 2024-04-06 09:23 | XMS_ITS | Encounter Summary ---
Author Organization [facility] Address [address] [place] [address]. [place] [address] [place] [address] Care Team Providers Care Quality Management Coordinator Name Role Phone Jerardo Jeff MD Primary Care Provider [phone] Reason for Visit * Auth/Cert (Routine) Specialty Diagnoses / Procedures Referred By Michelle rachel Referred To Contact Diagnoses Cataract of right eye, unspecified cataract type Right eye cataract Procedures REMV CATARACT EXTRACAP,INSERT LENS CATARACT REMOVAL WITH IOL IMPLANT Gabi Gutierrez MD [address] [place] [address] Phone: tel: fax: Referral ID Status Reason Start Date Expiration Date Visits Re quested Visits Authorized [id number] 1 1 Encounter Details Date Type Department Care Team (Latest Contact Info) Description 07/23/2022 7:10 AM CDT - 07/23/2022 9:16 AM CDT Hospital Encounter [facility] [address] [place] [address] Gabi Gutierrez MD [address] [place] [address] Discharge Disposition: Home or Self Care (Routine Discharge) Social History Tobacco Use Types Packs/Day Years [...] (400 mg total) by mouth daily. 10/26/2023 [facility] PRODUCT OP Take 1 Scoop by mouth daily. [place] lean belly juice 10/26/2023 [facility] IJ 10/26/2023 VITAMIN B COMPLEX-C [...] the past 30 days. After examining Guilherme Flako Spraggs, no change has occurred in the patient's condition since the H&P was completed. Informed Consent Discussion: Potential benefits, risks, and side effects of the patient's procedure/surgery; the likelihood of the patient achieving his or her goals; and any potential problems that might occur during recuperation were discussed with the patient/family/personal parts counter representative. Reasonable alternatives to the patient's proposed procedure/surgery including benefits, risks, and side effects related to the alternatives and the risks related to not receiving the proposed care were also discussed with the patient/family/personal parts counter representative. Questions were answered and the patient/family/personal parts counter representative verbalized understanding and desires to proceed. Source Note - Arjun, Documents - 07/11/2022 11:05 AM CDT documented in this encounter Nursing Notes * Pippa Morgan RN - 07/23/2022 9:08 AM CDT Verbal and written discharge instructions for Dr. Gutierrez given to patient and his . Questions answered. Both verbalizes understanding. documented in this encounter OR Notes * Brief Op Note - Gabi Gutierrez MD - 07/23/2022 8:49 AM CDT Patient: Guilherme Angeles 1950 [id number] Preoperative Diagnosis: Visually significant cataract Postoperative Diagnosis: Visually significant cataract Procedure: Cataract Extraction with Intraocular Lens Placement, RIGHT Eye Surgeon: Gabi Gutierrez MD Pan Washer: none Anesthesia: Monitor Anesthesia Care Implant: Implant Name Type Inv. Item Serial No. Laboratory Equipment Installer Lot No. LRB No. Used Action IOL TECNIS SIMPLICITY DCB00 - [id number] Lens IOL TECNIS SIMPLICITY DCB00 [employer] NONE Right 1 Implanted Specimen: [...] 0715 documented in this encounter Visit Diagnoses Not on filedocumented in this encounter Administered Medications Inactive Administered Medications - up to 3 most recent administrations Medication Order MAR Action Action Date Dose Rate Site acetaZOLAMIDE ER (DIAMOX) 12 hr capsule 500 mg 500 mg, Oral, Once, 1 dose, On Thu07/23/22 at 0845, Upon return to [facility] or before discharge unless patient has [...] Bag 07/23/2022 7:44 AM CDT 10 mL/hr moxifloxacin (VIGAMOX) 0.5 % ophthalmic solution 1 [...] Given 07/23/2022 7:35 AM CDT 1 drop tropicamide 1%-phenylephrine 2.5% ophthalmic solution 1 drop [...] On Thu07/23/22 at 0845, Upon return to [facility] or before discharge unless patient has sulfa allergy. Hold diamox if blood pressure is less than 100/60 mmHg and have patient take at 1800 on the night of surgery instead. Swallow capsule whole or it may be opened and the contents sprinkled on applesauce., Post-Op 0857 (Given - Provid er: Pippa Morgan, ANTON) moxifloxacin (VIGAMOX) 0.5 % ophthalmic solution 1 drop (COMPLETED) 1 drop, Right Eye, Every 10 min, 2 doses, First dose on Thu07/23/22 at 0730, Last dose on Thu07/23/22 at 0740, Instill in operative eye, Pre-Op 07 (Given - Provid er: Pippa Morgan RN)45 (Given - Provider: Pippa Morgan, RN) proparacaine (ALCAINE) 0.5 % ophthalmic solution 1 drop (COMPLETED) 1 drop, Right Eye, Every 10 min, 2 doses, First dose on Thu07/23/22 at 0730, Last dose on Thu07/23/22 at 0740, In operative eye, Pre-Op 0735 (Given - Provid er: Pippa Morgan RN)0745 (Given - Provider: Pippa Morgan, RN) tropicamide 1%-phenylephrine 2.5% ophthalmic solution 1 drop (COMPLETED) 1 drop, Right Eye, Every 10 min, 2 doses, First dose on Thu07/23/22 at 0730, Last dose on Thu07/23/22 at 0740, Instill in operative eye, Pre-Op 0736 (Given - Provid er: Pippa Morgan, ANTON)0745 (Given - Provider: Pippa Morgan, ANTON) Continuous Medication Order 07/21/2022 07/22/2022 07/23/2022 lactated ringers infusion at 10 mL/hr, Intravenous, Continuous, Starting on Thu07/23/22 at 0730, Until Thu07/23/22 at 1119, Infuse at TKO rate, Pre-Op 0744 (New Bag - Prov ider: Pippa Morgan, ANTON)0819 (Continued by Anesthesia - Provider: Anitha Gonzalez CRNA)0859 (Infusion Stop Time - Provider: Pippa Morgan RN) PRN Medication Order 07/21/2022 07/22/2022 07/23/2022 lidocaine [...] RN) documented in this encounter Care Teams Quality Management Coordinator Relationship Specialty Start Date End Date Jerardo Jeff MD [address] [place] [address] PCP - General FAMILY PRACTICE 07/23/22 documented as of this encounter
--- OUTSIDE RECORDS SUMMARY | 2024-04-06 09:23 | XMS_ITS | Encounter Summary ---
Author Organization [facility] Address [address] [place] [address]. [place], [place] [id number] [place] [id number] Care Team Providers Care Advertising Coordinator Name Role Phone Jerardo Jeff MD Primary Care Provider [phone] Reason for Referral * Imaging (Emergency) - New Request Specialty Diagnoses / Procedures Referred By Contac t Referred To Contact RADIOLOGY Procedures CT ABD+PEL W IV CON ONLY Theodore Salomon MD [address] [place] [address] Phone: tel: fax: Referral ID Status Reason Start Date Expiration Date V isits Requested Visits Authorized [id number] New Request 10/26/2023 10/25/2024 1 1 * Imaging (Emergency) - New Request Specialty Diagnoses / Procedures Referred By Contac t Referred To Contact RADIOLOGY Procedures CTA CHEST PE PROTOCOL Theodore Salomon MD [address] [place] [address] Phone: tel: fax: Referral ID Status Reason Start Date Expiration Date V isits Requested Visits Authorized [id number] New Request 10/26/2023 10/25/2024 1 1 Reason for Visit * Reason Comments Abdominal Pain Encounter Details Date Type Department Care Team (Late st Contact Info) Description 10/26/2023 9:49 AM CDT - 10/26/2023 1:00 PM CDT Emergency [facility] Emergency [facility] [address] [place] [address] [place] [address] Theodore Salomon MD [address] [place] [address] Abdominal Pain Discharge Disposition: Home or Self Care (Routine [...] Mass Index 29.41 10/26/2023 9:43 AM CDT documented in this encounter Discharge Instructions * Discharge Instructions* Theodore Salomon MD - 10/26/2023 12:40 PM CDT Follow-up with Dr. Turcios in the office for postoperative visit. Call today to reschedule appointmentthat you missed today while being evaluated in the ER. You should also follow-up with primary care physician for further care, especially if you continue to have episodes of pain like this. May return to the ER if needed for any severely worsening symptoms or problems. * Attachments The following attachments cannot be sent through Care Everywhere. * Postoperative Pain Discharge Instructions (Indonesian) * Abdominal Pain, Adult ED (Indonesian) documented in this encounter Medications at Time of Discharge carBAMazepine (TEGRETOL) 200 MG tablet Take 1 tablet (200 mg total) by mouth 3 (three) times daily. levETIRAcetam (KEPPRA) 500 MG tablet Take 1 tablet (500 mg total) by mouth daily. Pt weaning off documented as of this encounter ED Notes * Sourav Mac RN - 10/26/2023 12:50 PM CDT Pt resting in exam chair. * Theodore Salomon MD - 10/26/2023 9:44 AM CDT Chief Complaint Chief Complaint Patient presents with Abdominal Pain History of Present Illness Patient is a 72-year-old male who presents to the emergency department for evaluation of right upper quadrant abdominal pain. Patient reports onset of symptoms approximately 10 minutes prior to evaluation. Patient reports having had similar episodes at around 4:00 this morning. Patient underwent cho lecystectomy and hernia repair 6 days ago at [facility] with Dr. Turcios. reports that patient had to go back to the operating room as initial hernia repair failed shortly postoperatively. reports that patient has postoperative appointment with Dr. Turcios at 11:00 this morning. Patient describes the pain as sharp and located the right upper quadrant. He also reports pain in his right shoulder. He denies any back pain. He denies chest pain or feeling short of breath. He does report feeling a bit nauseous but did not have any vomiting. Patient denies any cardiopulmonary history or history of venous thromboembolic disease. Medical History ALLERGIES: Review of patient's allergies indicates: Allergen Reactions Clindamycin Rash MEDICATIONS: Prior to Admission medications Medication Sig Start Date End Date Taking? Authorizing Provider carBAMazepine (TEGRETOL) 200 MG tablet Take 1 tablet (200 mg total) by mouth 3 (three) times daily.Yes Default History Genericprovider levETIRAcetam (KEPPRA) 500 MG tablet Take 1 tablet (500 mg total) by mouth daily. Pt weaning off Yes Default History Genericprovider PAST MEDICAL HISTORY: Past Medical History: Diagnosis Date Seizures ([facility]) petit mal --staing type--but the medicine stopped thiose PAST SURGICAL HISTORY: Past Surgical History: Procedure Laterality Date BACK SURGERY N/A 03/2022 lumbar decompression HYDROCELECTOMY UMBILICAL HERNIA REPAIR x2 FAMILY HISTORY: No family history on file. SOCIAL HISTORY: Social History Tobacco Use Smoking status: Never Smokeless tobacco: Never Substance Use Topics Alcohol use: Not Currently Review of Systems Review of Systems Physical Exam Filed Vitals: 10/26/23 1025 10/26/23 1030 10/26/23 1035 10/26/23 1040 BP: Pulse: (!) 54 (!) 56 (!) 52 (!) 51 Resp: 19 18 16 15 Temp: TempSrc: SpO2: Weight: Height: Physical Exam Vitals and nursing note reviewed. Constitutional: General: He is not in acute distress. Appearance: He is not toxic-appearing. Cardiovascular: Rate and Rhythm: Regular rhythm. Bradycardia present. Pulmonary: Effort: Pulmonary effort is normal. Breath sounds: Normal breath sounds. Abdominal: General: Bowel sounds are normal. Palpations: Abdomen is soft. Tenderness: There is no abdominal tenderness. There is no right CVA tenderness or left CVA tenderness. Musculoskeletal: General: Normal range of motion. Right lower leg: No edema. Left lower leg: No edema. Skin: General: Skin is warm and dry. Neurological: Mental Status: He is alert and oriented to person, place, and time. Psychiatric: Mood and Affect: Mood and affect normal. Behavior: Behavior normal. Diagnostic Studies / Procedures ELECTROCARDIOGRAMS: Results for orders placed or performed during the hospital encounter of 10/26/23 ECG 12 lead Narrative HFG Test Date: 2023-10-26 [place] Name: LANDON BUNCH Department: 100 Room: Gender: Male Mycologist: : 1950 Requested By: THEODORE SALOMON Order Number: [id number] Reading MD: Measurements Intervals [place] Rate: 57 P: 41 CT: 158 QRS: 7 QRSD: 153 T: 53 QT: 417 QTc: 407 Interpretive Statements SINUS BRADYCARDIA WITH OCCASIONAL VENTRICULAR PREMATURE COMPLEXES RIGHT BUNDLE BRANCH BLOCK [120+ ms QRS DURATION, UPRIGHT V1, 40+ ms S IN I/aVL/V4/V5/V6] LABORATORY STUDIES: Results for orders placed or performed during the hospital encounter of 10/26/23 CBC W/DIFF AUTOMATED Result Value Ref Range WBC 5.27 4.50 - 11.00 x10'3/uL RBC 4.48 (L) 4.50 - 5.90 x10'6/uL HGB 13.5 (L) 14.0 - 18.0 G/DL HCT 40.7 (L) 43.0 - 54.0 % MCV 90.8 80.0 - 100.0 FL MCH 30.1 26.0 - 34.0 PG MCHC 33.2 31.0 - 37.0 G/DL RDW 11.8 11.6 - 14.8 % PLT 256 130 - 400 x10'3/uL MPV 9.6 7.0 - 12.0 FL CBC COMMENT AUTOMATED RBC MORPHOLOGY AND PLATELET EVALUATION NORMAL NEUTROPHILS 43.0 40.0 - 74.0 % LYMPHOCYTES 39.8 14.0 - 46.0 % MONOCYTES 13.1 (H) 4.0 - 13.0 % EOSINOPHILS 2.8 0.0 - 7.0 % BASOPHILS 1.1 0.0 - 3.0 % IMMATURE GRANS 0.2 0.0 - 0.43 % NRBC 0.0 % ABS. NEUTROPHILS TOTAL 2.26 1.69 - 7.81 x10'3/uL ABS. LYMPHOCYTES 2.10 0.21 - 5.42 x10'3/uL ABS. MONOCYTES 0.69 0.04 - 1.37 x10'3/uL ABS. EOSINOPHILS 0.15 0.00 - 0.68 x10'3/uL ABS. BASOPHILS 0.06 0.00 - 0.08 x10'3/uL ABS. IMMATURE GRANULOCYTES 0.01 0.00 - 0.06 x10'3/uL ABS. NUCLEATED RBC'S 0.00 0.00 - 0.01 x10'3/uL COMPREHENSIVE METABOLIC PANEL Result Value Ref Range GLUCOSE 83 70 - 99 MG/DL BUN 18 7 - 18 MG/DL CREATININE S/P/B 0.81 0.50 - 1.20 MG/DL SODIUM S/P/B 142 136 - 145 MMOL/L POTASSIUM S/P/B 3.8 3.5 - 5.1 MMOL/L CHLORIDE S/P/B 105 100 - 108 MMOL/L CO2 25.7 21.0 - 32.0 MMOL/L CALCIUM S/P/B 9.3 8.5 - 10.1 MG/DL BILIRUBIN TOTAL S/P/B 0.3 0.2 - 1.2 MG/DL TOTAL PROTEIN S/P/B 7.3 6.4 - 8.2 G/DL ALBUMIN S/P/B 3.3 (L) 3.4 - 5.0 G/DL AST 29 15 - 37 U/L ALT 20 16 - 60 U/L ALKALINE PHOSPHATASE S/P/B 82 50 - 136 U/L ANION GAP 11.3 5.0 - 15.0 MMOL/L BUN CREATININE RATIO 22.2 6 - 26 A/G RATIO 0.8 (L) 1.0 - 2.5 RATIO GFR ESTIMATE >90 >90 ML/MIN/1.73 M2 LIPASE Result Value Ref Range LIPASE 20 16 - 77 UNITS/L TROPONIN, QUANT Result Value Ref Range TROPONIN I HIGH SENSITIVITY 7 0 - 54 ng/L D-DIMER, QUANTITATIVE Result Value Ref Range D-DIMER 1,302 (HH) 0 - 500 ng[FEU]/mL MAGNESIUM Result Value Ref Range MAGNESIUM 1.9 1.8 - 2.4 MG/DL TROPONIN, QUANT Result Value Ref Range TROPONIN I HIGH SENSITIVITY 8 0 - 54 ng/L IMAGING STUDIES CTA CHEST PE PROTOCOL Final Result by User, [id number] (10/26 1107) CTA CHEST WITH CONTRAST PULMONARY EMBOLISM PROTOCOL Clinical history: Positive d-dimer. Technique: Dynamic helical images of the chest were obtained after the patient received 95 mL of Isovue 370 nonionic intravenous contrast through an IV in the left antecubital fossa. Images are reviewed in axial, sagittal, and three-dimensional reformatted views. A dose lowering technique was used for this procedure, which may include, but is not limited to, dose reduction technique, automated exposure control, the use of iterative reconstruction, and ALARA (As Low As Reasonably Achievable) / Image Gently techniques. 3-D MIP formatted images were also obtained and are made available for review. Comparison: without prior studies available for comparison. FINDINGS: The obtained images demonstrate good opacification of the pulmonary vasculature. No intraluminal filling defects are observed. There is no evidence of pulmonary embolism. The heart appears normal in size and morphology. No significant pericardial effusion is seen. No pathologically enlarged lymph nodes are present within the mediastinum or jessica. No axillary adenopathy is observed. The great vessels are within normal limits. Pulmonary windows reveal the lungs to be clear bilaterally. No acute consolidations, effusions, or significant pulmonary nodules are observed. Images of the upper abdomen demonstrate the visualized portion of liver, spleen, and adrenal glands to be within normal limits. IMPRESSION: 1. No evidence of pulmonary embolism. No acute findings. Ordered By: THEODORE SALOMON Interpreted By: Maximiliano Zee MD, 10/26/2023 11:[address] ABD+PEL W IV CON ONLY Final Result by User, [id number] (10/25 1111) CT ABDOMEN AND PELVIS WITH CONTRAST Exam date:10/26/2023 10:52 AM Clinical history: Right upper quadrant abdominal pain. Technique: Dynamic helical images of the abdomen and pelvis were obtained. The patient received approximately 100 mL of Isovue 370 nonionic intravenous contrast through an IV in the left antecubital fossa. A dose lowering technique was used for this procedure, which may include, but is not limited to, dose reduction technique, automated exposure control, the use of iterative reconstruction, and ALARA (As Low As Reasonably Achievable) / Image Gently techniques. Comparison: None. FINDINGS: Images of the lower thorax demonstrate the visualized portion of the heart to appear normal. The lung bases are clear. Images of the abdomen demonstrate the overall size and morphology of the liver to be within normal limits. No hepatic lesions are observed. No ascites is seen. The gallbladder is surgically absent. Mild inflammatory changes are noted within the gallbladder fossa. The pancreas, spleen, and adrenal glands appear grossly normal. The kidneys are normal in overall size. A 3 mm nonobstructing stone is noted within the lower pole of the left kidney. Images of the pelvis demonstrate the urinary bladder to appear normal. The prostate is moderate to severely enlarged. The stomach and small bowel have a normal appearance throughout. The terminal ileum appears normal. The colon is within normal limits. No adenopathy or abnormal fluid collections are present. Mild inflammatory changes are noted within the subcutaneous fat at the level of the umbilicus. This is nonspecific. IMPRESSION: 1. Mild postoperative inflammatory changes within the gallbladder fossa 2. Nonspecific inflammatory changes within the fat adjacent to the umbilicus 3. Prostatomegaly 4. Nonobstructing left-sided kidney stone Ordered By: THEODORE SALOMON Interpreted By: Maximiliano Zee MD, 10/26/2023 11:07 AM XR CHEST PORTABLE Final Result by User, [id number] (10/25 1009) SINGLE VIEW OF THE CHEST Clinical history: Chest pain Comparison: None A single view of the chest demonstrates the cardiac silhouette to be normal in size. The pulmonary vessels are normally distributed. The Lungs are clear. No consolidations or effusions are seen. IMPRESSION: No acute findings Ordered By: THEODORE SALOMON Interpreted By: Maximiliano Zee MD, 10/26/2023 10:08 AM ED Course / Medical Decision Making Medical Decision Making Patient presents with right upper quadrant abdominal pain with right shoulder pain. Concern for postoperative complications such as hemorrhage, infection, bile leak, or standard postoperative pain. Additionally with concerns for cardiac cause and for pulmonary embolism. No concerning pathology noted on labs and imaging aside from D-dimer being elevated which prompted doing CT angiography of the chest as pulmonary embolism was of significant concern. Patient symptoms greatly improved. Discussed he could take pain medication that was prescribed to him by surgeon if needed for recurrent pain. Patient will be rescheduling his postoperative appointment that he missed today while being evaluated in the ED. Also advised following up with primary care physician in case he has recurrent symptoms. Discussed suspicion that this is postoperative pain, but importance of pursuing further evaluation if symptoms are not improving or if surgeon has concerns that this is not related to his recent s urgery. Patient advised to return to ED if needed for any worsening symptoms or problems. Problems Addressed: Acute post-operative pain: acute illness or injury RUQ abdominal pain: acute illness or injury Amount and/or Complexity of Data Reviewed Independent Historian: spouse Details: as noted in HPI Labs: ordered. Decision-making details documented in ED Course. Radiology: ordered. Decision-making details documented in ED Course. ECG/medicine tests: ordered and independent interpretation performed. Decision- making details documented in ED Course. Details: EKG reviewed. On my interpretation, no ST elevation or depression. No acute UT. Right bundle branch block present. No old EKG available for comparison. Rhythm strip ordered and interpreted by myself Time 09 52. Bradycardic rate of 57. Sinus rhythm. PVCs. Risk Prescription drug management. Medications morphine injection 2 mg (2 mg Intravenous Not Given 10/26/23 1007) ondansetron (ZOFRAN) injection 4 mg (4 mg Intravenous Not Given 10/26/23 1007) iopamidol (ISOVUE-370) 76 % injection 100 mL (100 mLs Intravenous Given 10/26/23 1054) Clinical Impression RUQ abdominal pain (Primary) Acute post-operative pain Disposition: Discharge Theodore Salomon MD 10/26/23 1245 documented in this encounter Plan of Treatment Not on file documented as of this encounter Procedures Procedure Name Priority Date/Time Associated Diagnosis Comments TROPONIN, QUANT STAT 10/26/2023 11:58 AM CDT CTA CHEST PE PROTOCOL STAT 10/26/2023 10:[address] ABD+PEL W CON STAT 10/26/2023 10:5 4 AM CDT XR CHEST PORTABLE STAT 10/26/2023 10: 00 AM CDT CBC W/DIFF AUTOMATED STAT 10/26/2023 9:55 AM CDT ECG 12-LEAD Routine 10/26/2023 9:52 AM CDT TSH W/REFLEX STAT 10/26/2023 9:44 AM CDT COMPREHENSIVE METABOLIC PANEL STAT 10/26/2023 9:44 AM CDT D-DIMER, QUANTITATIVE STAT 10/26/2023 9:44 AM CDT TROPONIN, QUANT STAT 10/26/2023 9:44 AM CDT MAGNESIUM STAT 10/26/2023 9:44 AM CDT LIPASE STAT 10/26/2023 9:44 AM CDT documented in this encounter Results * TROPONIN, QUANT (10/26/2023 11:58 AM CDT) TROPONIN I HIGH SENSITIVITY 8 0 - 54 ng/L 10/26/2023 12:31 PM CDT [facility] Comment: HIGH DOSES OF BIOTIN, TROPONIN-SPECIFIC AUTOANTIBODIES, AND ANTIBODY THERAPY CONTAINING HAMA MAY INTERFERE WITH THIS TEST RESULT. CORRELATION TO CLINICAL HISTORY AND PRESENTATION RECOMMENDED. 10/26/2023 11:5 8 AM CDT us Theodore Salomon MD LABORATORY Final Resu lt [facility] [address] [address], * CT ABD+PEL W IV CON ONLY (10/26/2023 10:54 AM CDT) Anatomical Region Laterality Modality Abdomen Computed Tomogra phy 10/26/2023 11:0 7 AM CDT Impressions 10/26/2023 11:10 AM CDT IMPRESSION: 1. Mild postoperative inflammatory changes within the gallbladder fossa 2. Nonspecific inflammatory changes within the fat adjacent to the umbilicus 3. Prostatomegaly 4. Nonobstructing left-sided kidney stone Ordered By: THEODORE SALOMON Interpreted By: Maximiliano Zee MD, 10/26/2023 11:07 AM Narrative 10/26/2023 11:[address] ABDOMEN AND PELVIS WITH CONTRAST Exam date:10/26/2023 10:52 AM Clinical history: Right upper quadrant abdominal pain. Technique: Dynamic helical images of the abdomen and pelvis were obtained. The patient received approximately 100 mL of Isovue 370 nonionic intravenous contrast through an IV in the left antecubital fossa. A dose lowering technique was used for this procedure, which may include, but is not limited to, dose reduction technique, automated exposure control, the use of iterative reconstruction, and ALARA (As Low As Reasonably Achievable) / Image Gently techniques. Comparison: None. FINDINGS: Images of the lower thorax demonstrate the visualized portion of the heart to appear normal. The lung bases are clear. Images of the abdomen demonstrate the overall size and morphology of the liver to be within normal limits. No hepatic lesions are observed. No ascites is seen. The gallbladder is surgically absent. Mild inflammatory changes are noted within the gallbladder fossa. The pancreas, spleen, and adrenal glands appear grossly normal. The kidneys are normal in overall size. A 3 mm nonobstructing stone is noted within the lower pole of the left kidney. Images of the pelvis demonstrate the urinary bladder to appear normal. The prostate is moderate to severely enlarged. The stomach and small bowel have a normal appearance throughout. The terminal ileum appears normal. The colon is within normal limits. No adenopathy or abnormal fluid collections are present. Mild inflammatory changes are noted within the subcutaneous fat at the level of the umbilicus. This is nonspecific. Procedure Note Maximiliano Zee MD - 10/26/2023 CT ABDOMEN AND PELVIS WITH CONTRAST Exam date:10/26/2023 10:52 AM Clinical history: Right upper quadrant abdominal pain. Technique: Dynamic helical images of the abdomen and pelvis were obtained.The patient received approximately 100 mL of Isovue 370 nonionicintravenous contrast through an IV in the left antecubital fossa. A doselowering technique was used for this procedure, which may include, but isnot limited to, dose reduction technique, automated exposure control, theuse of iterative reconstruction, and ALARA (As Low As ReasonablyAchievable) / Image Gently techniques. Comparison: None. FINDINGS: Images of the lower thorax demonstrate the visualized portion of the heartto appear normal. The lung bases are clear. Images of the abdomen demonstrate the overall size and morphology of theliver to be within normal limits. No hepatic lesions are observed. Noascites is seen. The gallbladder is surgically absent. Mild inflammatorychanges are noted within the gallbladder fossa. The pancreas, spleen, andadrenal glands appear grossly normal. The kidneys are normal in overallsize. A 3 mm nonobstructing stone is noted within the lower pole of theleft kidney. Images of the pelvis demonstrate the urinary bladder to appear normal. Theprostate is moderate to severely enlarged. The stomach and small bowel have a normal appearance throughout. Theterminal ileum appears normal. The colon is within normal limits. Noadenopathy or abnormal fluid collections are present. Mild inflammatorychanges are noted within the subcutaneous fat at the level of theumbilicus. This is nonspecific. IMPRESSION: 1. Mild postoperative inflammatory changes within the gallbladder fossa 2. Nonspecific inflammatory changes within the fat adjacent to theumbilicus 3. Prostatomegaly 4. Nonobstructing left-sided kidney stone Ordered By: THEODORE SALOMON Interpreted By: Maximiliano Zee MD, 10/26/2023 11:07 AM us Theodore Salomon MD CT Final Resu lt * CTA CHEST PE PROTOCOL (10/26/2023 10:54 AM CDT) Anatomical Region Laterality Modality Chest Computed Tomogra phy 10/26/2023 11:0 6 AM CDT Impressions 10/26/2023 11:07 AM CDT IMPRESSION: 1. No evidence of pulmonary embolism. No acute findings. Ordered By: THEODORE SALOMON Interpreted By: Maximiliano Zee MD, 10/26/2023 11:06 AM Narrative 10/26/2023 11:07 AM CDT CTA CHEST WITH CONTRAST PULMONARY EMBOLISM PROTOCOL Clinical history: Positive d-dimer. Technique: Dynamic helical images of the chest were obtained after the patient received 95 mL of Isovue 370 nonionic intravenous contrast through an IV in the left antecubital fossa. Images are reviewed in axial, sagittal, and three-dimensional reformatted views. A dose lowering technique was used for this procedure, which may include, but is not limited to, dose reduction technique, automated exposure control, the use of iterative reconstruction, and ALARA (As Low As Reasonably Achievable) / Image Gently techniques. 3-D MIP formatted images were also obtained and are made available for review. Comparison: without prior studies available for comparison. FINDINGS: The obtained images demonstrate good opacification of the pulmonary vasculature. No intraluminal filling defects are observed. There is no evidence of pulmonary embolism. The heart appears normal in size and morphology. No significant pericardial effusion is seen. No pathologically enlarged lymph nodes are present within the mediastinum or jessica. No axillary adenopathy is observed. ??The great vessels are within normal limits. Pulmonary windows reveal the lungs to be clear bilaterally. No acute consolidations, effusions, or significant pulmonary nodules are observed. Images of the upper abdomen demonstrate the visualized portion of liver, spleen, and adrenal glands to be within normal limits. Procedure Note Maximiliano Zee MD - 10/26/2023 CTA CHEST WITH CONTRAST PULMONARY EMBOLISM PROTOCOL Clinical history: Positive d-dimer. Technique: Dynamic helical images of the chest were obtained after thepatient received 95 mL of Isovue 370 nonionic intravenous contrast throughan IV in the left antecubital fossa. Images are reviewed in axial,sagittal, and three-dimensional reformatted views. A dose loweringtechnique was used for this procedure, which may include, but is notlimited to, dose reduction technique, automated exposure control, the useof iterative reconstruction, and ALARA (As Low As Reasonably Achievable) /Image Gently techniques. 3-D MIP formatted images were also obtained and are made available forreview. Comparison: without prior studies available for comparison. FINDINGS: The obtained images demonstrate good opacification of the pulmonaryvasculature. No intraluminal filling defects are observed. There is noevidence of pulmonary embolism. The heart appears normal in size and morphology. No significantpericardial effusion is seen. No pathologically enlarged lymph nodes arepresent within the mediastinum or jessica. No axillary adenopathy isobserved. The great vessels are within normal limits. Pulmonary windows reveal the lungs to be clear bilaterally. No acuteconsolidations, effusions, or significant pulmonary nodules areobserved. Images of the upper abdomen demonstrate the visualized portion of liver,spleen, and adrenal glands to be within normal limits. IMPRESSION: 1. No evidence of pulmonary embolism. No acute findings. Ordered By: THEODORE SALOMON Interpreted By: Maximiliano Zee MD, 10/26/2023 11:06 AM us Theodore Salomon MD CT Final Resu lt * XR CHEST PORTABLE (10/26/2023 10:00 AM CDT) Anatomical Region Laterality Modality Chest Computed Tomogra phy 10/26/2023 10:0 8 AM CDT Impressions 10/26/2023 10:08 AM CDT IMPRESSION: No acute findings Ordered By: THEODORE SALOMON Interpreted By: Maximiliano Zee MD, 10/26/2023 10:08 AM Narrative 10/26/2023 10:08 AM CDT SINGLE VIEW OF THE CHEST Clinical history: Chest pain Comparison: None A single view of the chest demonstrates the cardiac silhouette to be normal in size. The pulmonary vessels are normally distributed. The Lungs are clear. No consolidations or effusions are seen. Procedure Note Maximiliano Zee MD - 10/26/2023 SINGLE VIEW OF THE CHEST Clinical history: Chest pain Comparison: None A single view of the chest demonstrates the cardiac silhouette to benormal in size. The pulmonary vessels are normally distributed. The Lungsare clear. No consolidations or effusions are seen. IMPRESSION: No acute findings Ordered By: THEODORE SALOMON Interpreted By: Maximiliano Zee MD, 10/26/2023 10:08 AM us Theodore Salomon MD GENERAL IMAGING Final Resu lt * (ABNORMAL) CBC W/DIFF AUTOMATED (10/26/2023 9:55 AM CDT) Pathologist [facility] WBC 5.27 4.50 - 11.00 x10'3/uL 10/26/2023 10:04 AM CDT [facility] RBC 4.48(L) 4.50 - 5.90 x10'6/uL 10/26/2023 10:04 AM CDT [facility] HGB 13.5(L) 14.0 - 18.0 G/DL 10/26/2023 10:04 AM CDT [facility] HCT 40.7(L) 43.0 - 54.0 % 10/26/2023 10:04 AM CDT [facility] MCV 90.8 80.0 - 100.0 FL 10/26/2023 10:04 AM CDT [facility] MCH 30.1 26.0 - 34.0 PG 10/26/2023 10:04 AM CDT [facility] MCHC 33.2 31.0 - 37.0 G/DL 10/26/2023 10:04 AM CDT [facility] RDW 11.8 11.6 - 14.8 % 10/26/2023 10:04 AM CDT [facility] PLT 256 130 - 400 x10'3/uL 10/26/2023 10:04 AM CDT [facility] MPV 9.6 7.0 - 12.0 FL 10/26/2023 10:04 AM CDT [facility] CBC COMMENT AUTOMATED RBC MORPHOLOGY AND PLATELET EVALUATION NORMAL 10/26/2023 10:04 AM CDT [facility] NEUTROPHILS % 43.0 40.0 - 74.0 % 10/26/2023 10:04 AM CDT [facility] LYMPHOCYTES % 39.8 14.0 - 46.0 % 10/26/2023 10:04 AM CDT [facility] MONOCYTES % 13.1(H) 4.0 - 13.0 % 10/26/2023 10:04 AM CDT [facility] EOSINOPHILS 2.8 0.0 - 7.0 % 10/26/2023 10:04 AM CDT [facility] BASOPHILS 1.1 0.0 - 3.0 % 10/26/2023 10:04 AM CDT [facility] IMMATURE GRANS % 0.2 0.0 - 0.43 % 10/26/2023 10:04 AM CDT [facility] NRBC 0.0 % 10/26/2023 10:04 AM CDT [facility] NEUTROPHILS TOTAL 2.26 1.69 - 7.81 x10'3/uL 10/26/2023 10:04 AM CDT [facility]. LYMPHOCYTES 2.10 0.21 - 5.42 x10'3/uL 10/26/2023 10:04 AM CDT [facility]. MONOCYTES 0.69 0.04 - 1.37 x10'3/uL 10/26/2023 10:04 AM CDT [facility]. EOSINOPHILS 0.15 0.00 - 0.68 x10'3/uL 10/26/2023 10:04 AM CDT [facility]. BASOPHILS 0.06 0.00 - 0.08 x10'3/uL 10/26/2023 10:04 AM CDT [facility]. IMMATURE GRANULOCYTES 0.01 0.00 - 0.06 x10'3/uL 10/26/2023 10:04 AM CDT [facility]. NUCLEATED RBC'S 0.00 0.00 - 0.01 x10'3/uL 10/26/2023 10:04 AM CDT [facility] 10/26/2023 9:55 AM CDT us Theodore Salomon MD LABORATORY Final Resu lt [facility] [address] [place] [address], * ECG 12 lead (10/26/2023 9:52 AM CDT) 10/26/2023 9:52 AM CDT Narrative [facility] - 10/26/2023 11:00 PM CDT ? HFG ? Test Date: ?2023-10-26 Pat Name: ? LANDON BUNCH ? Department: ?? 100 ? Room: ? Gender: ? Male ? Mycologist: ?? ME : ?1950 ? Requested By: THEODORE SALOMON Order Number: [id number] ? Reading MD: ?? Janeth Sandy ? Measurements Intervals ?[place] ? Rate: ? 57 ? P: ?41 CT: ? 158 ?QRS: ?7 QRSD: ? 153 ?T: ?53 QT: ? 417 ? QTc: ?407 ? Interpretive Statements SINUS BRADYCARDIA WITH OCCASIONAL VENTRICULAR PREMATURE COMPLEXES RIGHT BUNDLE BRANCH BLOCK [120+ ms QRS DURATION, UPRIGHT V1, 40+ ms S IN I/aVL/V4/V5/V6] No prior electrocardiogram available Procedure Note Janeth Delgado MD - 10/26/2023 HFG Test Date: 2023-10-26 Pat Name: LANDON BUNCH Department: 100 Room: Gender: Male Mycologist: [place] : 1950 Requested By: THEODORE SALOMON Order Number: [id number] Reading MD: Janeth Delgado Measurements Intervals [place] Rate: 57 P: 41 CT: 158 QRS: 7 QRSD: 153 T: 53 QT: 417 QTc: 407 Interpretive Statements SINUS BRADYCARDIA WITH OCCASIONAL VENTRICULAR PREMATURE COMPLEXES RIGHT BUNDLE BRANCH BLOCK [120+ ms QRS DURATION, UPRIGHT V1, 40+ ms S IN I/aVL/V4/V5/V6] No prior electrocardiogram available us Theodore Salomon MD ECG ORDERABLES Final Resu lt Performing Organization Address City/State/[facility] Co de Phone Number [facility]-[address] [address] * TSH W/REFLEX (10/26/2023 9:44 AM CDT) TSH 1.880 0.358 - 3.74 uIU/ML 10/28/2023 2:16 PM CDT [facility] Comment: HIGH DOSES OF BIOTIN MAY INTERFERE WITH THIS TEST RESULT. CORRELATION TO CLINICAL HISTORY AND PRESENTATION RECOMMENDED. FREE T4 NOT INDICATED 10/26/2023 9:44 AM CDT Theodore Salomon MD LABORATORY Final Resu lt [facility] [address] [place] [address], [place] [phone] * MAGNESIUM (10/26/2023 9:44 AM CDT) MAGNESIUM 1.9 1.8 - 2.4 MG/DL 10/26/2023 10:44 AM CDT [facility] 10/26/2023 9:44 AM CDT Theodore Salomon MD LABORATORY Final Resu lt Performing Organization Address [facility] Co de Phone Number [facility] [address] [place] [address], [place] * (ABNORMAL) D-DIMER, QUANTITATIVE (10/26/2023 9:44 AM CDT) D-DIMER 1,302(HH) 0 - 500 ng{FEU}/m L 10/26/2023 10:26 AM CDT [facility] Comment: RESULTS VERIFIED AND CALLED Gloria [phone] @ 1030 D-Dimer values less than or equal to 500 ng/mL FEU have a negative predictive value of >95% for exclusion of deep vein thrombosis and pulmonary embolism. In patients over 50 (who tend to have higher normal baseline D-Dimer values), recent studies suggest age-adjusted D-Dimer cutoff values (calculated as: age [years] x 10 ng/mL) result in equivalent outcomes and no additional false negative findings. 10/26/2023 9:44 AM CDT Theodore Salomon MD LABORATORY Final Resu lt Performing Organization Address City/[facility]/ZIP Co de Phone Number [facility] [address] [place] [address], [place] * TROPONIN, QUANT (10/26/2023 9:44 AM CDT) [facility] [place] [facility] TROPONIN I HIGH SENSITIVITY 7 0 - 54 ng/L 10/26/2023 10:44 AM CDT [facility] Comment: HIGH DOSES OF BIOTIN, TROPONIN-SPECIFIC AUTOANTIBODIES, AND ANTIBODY THERAPY CONTAINING HAMA MAY INTERFERE WITH THIS TEST RESULT. CORRELATION TO CLINICAL HISTORY AND PRESENTATION RECOMMENDED. 10/26/2023 9:44 AM CDT Theodore Salomon MD LABORATORY Final Resu lt Performing Organization Address [facility]/ZIP Co de Phone Number [facility] [address] [place] [address], * LIPASE (10/26/2023 9:44 AM CDT) [facility] [place] [facility] LIPASE 20 16 - 77 UNITS/L 10/26/2023 10:44 AM CDT [facility] 10/26/2023 9:44 AM CDT Theodore Salomon MD LABORATORY Final Resu lt Performing Organization Address [facility]/ZIP Co de Phone Number [facility] [address] [place] [address], * (ABNORMAL) COMPREHENSIVE METABOLIC PANEL (10/26/2023 9:44 AM CDT) [facility] [place] [facility] GLUCOSE 83 70 - 99 MG/DL 10/26/2023 10:44 AM CDT [facility] BUN 18 7 - 18 MG/DL 10/26/2023 10:44 AM CDT [facility] CREATININE S/P/B 0.81 0.50 - 1.20 MG/DL 10/26/2023 10:44 AM CDT [facility] SODIUM S/P/B 142 136 - 145 MMOL/L 10/26/2023 10:44 AM CDT [facility] POTASSIUM S/P/B 3.8 3.5 - 5.1 MMOL/L 10/26/2023 10:44 AM CDT [facility] CHLORIDE S/P/B 105 100 - 108 MMOL/L 10/26/2023 10:44 AM CDT [facility] CO2 25.7 21.0 - 32.0 MMOL/L 10/26/2023 10:44 AM CDT [facility] CALCIUM S/P/B 9.3 8.5 - 10.1 MG/DL 10/26/2023 10:44 AM CDT [facility] BILIRUBIN TOTAL S/P/B 0.3 0.2 - 1.2 MG/DL 10/26/2023 10:44 AM CDT [facility] Comment: THIS ASSAY IS NOT RECOMMENDED FOR PATIENTS UNDERGOING TREATMENT WITH ELTROMBOPAG DUE TO THE POTENTIAL FOR FALSELY ELEVATED RESULTS. TOTAL PROTEIN S/P/B 7.3 6.4 - 8.2 G/DL 10/26/2023 10:44 AM CDT [facility] ALBUMIN S/P/B 3.3(L) 3.4 - 5.0 G/DL 10/26/2023 10:44 AM CDT [facility] AST 29 15 - 37 U/L 10/26/2023 10:44 AM CDT [facility] ALT 20 16 - 60 U/L 10/26/2023 10:44 AM CDT [facility] ALKALINE PHOSPHATASE S/P/B 82 50 - 136 U/L 10/26/2023 10:44 AM CDT [facility] ANION GAP 11.3 5.0 - 15.0 MMOL/L 10/26/2023 10:44 AM CDT [facility] BUN CREATININE RATIO 22.2 6 - 26 10/26/2023 10:44 AM CDT [facility] A/G RATIO 0.8(L) 1.0 - 2.5 RATIO 10/26/2023 10:44 AM CDT [facility] GFR ESTIMATE >90 >90 ML/MIN/1.7 3 M2 10/26/2023 10:44 AM CDT [facility] Comment: NOTE: eGFR is not calculated for patients <18 years of age. This is an estimated GFR calculation using the new CKD EPI creatinine equation without race and so does not require a correction factor for race. This estimated GFR should not be used for calculating drug doses. 10/26/2023 9:44 AM CDT us Theodore Salomon MD LABORATORY Final Resu lt [facility] [address] [place] [address], [place] documented in this encounter Visit Diagnoses Diagnosis RUQ abdominal pain- Primary Abdominal pain, right upper quadrant Acute post-operative pain documented in this encounter Administered Medications Inactive Administered Medications - up to 3 most recent administrations Medication Order MAR Action Action Date Dose Rate Site iopamidol (ISOVUE-370) 76 % injection 100 mL 100 mL, Intravenous, IMG once as needed, Contrast, 1 dose, Starting on Thu10/26/23 at 1054, Until Thu10/26/23 at 1054 Given 10/26/2023 10:54 AM CDT 100 mLs Left Arm documented in this encounter Active and Recently Administered Medications Times are shown in CDT. Scheduled Medication Order 10/24/2023 10/25/2023 10/26/2023 morphine injection 2 mg 2 mg, Intravenous, Once, 1 dose, On Thu10/26/23 at 0945 1007 (Not Given - Pr ovider: Gloria Angela RN - Reason: Patient/family declined - Comment: no pain now) ondansetron (ZOFRAN) injection 4 mg 4 mg, Intravenous, Once, 1 dose, On Thu10/26/23 at 0945, IV push over 2-5 minutes. 1007 (Not Given - Pr ovider: Gloria Angela RN - Reason: Patient/family declined - Comment: no nausea) PRN Medication Order 10/24/2023 10/25/2023 10/26/2023 iopamidol (ISOVUE-370) 76 % injection 100 mL (COMPLETED) 100 mL, Intravenous, IMG once as needed, Contrast, 1 dose, Starting on Thu10/26/23 at 1054, Until Thu10/26/23 at 1054 1054 (Given - Provid er: Jonah Mackay) documented in this encounter Care Teams Advertising Coordinator Relationship Specialty Start Date End Date Jerardo Jeff MD [address] [place] [address] PCP - General FAMILY PRACTICE 07/23/22 documented as of this encounter
--- OUTSIDE RECORDS SUMMARY | 2024-04-06 09:23 | XMS_ITS | Encounter Summary ---
Author Organization [facility] Address [address] [place] [address]. [place] [address] [place] [address] Care Team Providers Care Bleacher Lard Name Role Phone Unavailable Primary Care Provider Unavailabl e Encounter Details Date Type Department Care Team (Late st Contact Info) Description 04/03/2021 Abstract [facility] [address] [place] [address] Gabi Gutierrez MD [address] [place] [address] Social History Tobacco Use Types Packs/Day Years [...]
--- OUTSIDE RECORDS SUMMARY | 2024-04-06 09:23 | XMS_ITS | Encounter Summary ---
Author Organization [facility] Address [address] [place] [address]. [place], [place] [id number] [place] [address] Care Team Providers Care Gravel Machine Operator Name Role Phone Unavailable Primary Care Provider Unavailabl e Encounter Details Date Type Department Care Team (Late st Contact Info) Description 08/09/2013 Abstract [facility] [address] [place] [address] , Brendon Albright MD Social History Tobacco [...]
--- OUTSIDE RECORDS SUMMARY | 2024-04-06 09:23 | XMS_ITS | Encounter Summary ---
Author Organization [facility] Address [address] [place] [address]. [place] [address] [place] [address] Care Team Providers Care Cotton Cleaner Name Role Phone Unavailable Primary Care Provider Unavailabl e Encounter Details Date Type Department Care Team (Late st Contact Info) Description 04/20/2000 Abstract [facility] [address] [place], [place] [id number] Gabi Gutierrez MD [address] [place] [address] Social History Tobacco Use Types Packs/Day Years [...]
== END 2024-04-02 11:27 | disposition home or self-care (01) ==
PROVIDERS: PCP Family Medicine; Visit Provider Anesthesiology
DX: Z79.899 Other long term (current) drug therapy (principal); Z01.818 Encounter for other preprocedural examination
CPT/HCPCS: 36415; 80156

== ENCOUNTER 2024-04-07 02:00 | Observation (INO) | payer MEDICARE, SELFPAY ==
[2024-03-31 15:47] VITALS: BMI 28.9
--- NOTE | 2024-03-31 16:04 | PC.NURSE ---
Report to the Outpatient Waiting Room, entrance under the green pavilion located off [facility], at time ___10:30AM____ on date ___04/05/24____. Planned Procedure Time: ___12:30PM .? Time changes happen often and if your time is changed the preop area will call you the afternoon before. - You and your visitor will be asked to self-screen and do not enter if you have any COVID symptoms. Please call surgeon if you need to reschedule. - A mask is optional within the hospital at this time. Patients may have clear liquids (water, carbonated beverages, clear teas, apple juice) until 3 hours prior to surgery with a maximum of 20 ounces. - No food from midnight until time of surgery and no smoking. This includes no chewing gum, candy or mints. Take only the following medications with a SIP of water on the morning of surgery: CARBAMAZEPINE AND LEVETIRACETAM DO NOT STOP ANY OF YOUR OTHER PRESCRIPTION MEDICATIONS PRIOR TO SURGERY EXCEPT THE FOLLOWING Medications to discontinue per physician NONE Date to take last dose Please no make-up, nail yoruba, hairspray, perfume, deodorant, or body powder the day of surgery.? No jewelry (including any body piercings) or valuables the day of surgery, leave them at home.? Please take a shower or bath the night before, or the morning of, surgery with an antibacterial soap.? Wear comfortable, loose fitting clothing.? Children are encouraged to wear pajamas. - Jewelry must be removed prior to entering the operating room.? Rings and piercings that are not removed may be cut off. - The hospital will not accept responsibility for valuables.? - Please leave all valuables, including medications, at home the day of surgery. If you are going home after surgery, a licensed certified driver examiner must drive you home.? - NO public transportation without another adult if you receive anesthesia. - We recommend that an adult stay with you for 24 hours following discharge. - We also recommend that you do not drive, make important decision, drink alcoholic beverages, or take any drugs that were not prescribed by your health care provider for at least 24 hours after your discharge time. Follow any additional instructions given to you from your surgeon. Telephone instructions given to ___PATIENT & WIFE and asked if any additional questions and then verbalized understanding. Patient advised to call surgeon office or pre surgery nurse liaison [phone] if any additional questions.
[2024-04-05] VITALS (19 sets, daily range): BP systolic 130–160; BP diastolic 58–91; PULSE 54–87; RESP 12–19; TEMP 36.2–36.9; O2SAT 93–100
--- NOTE | 2024-04-05 11:59 | WPDHPUPDATE1 ---
History and Physical Update Update Date/Time: 04/05/24 11:59 History and Physical has been reviewed, including an updated exam of the patient. There are NO changes in the patient's condition. Risks, benefits, and alternatives have been discussed and questions answered. Patient agrees to proceed with procedure.
[2024-04-05] MEDS: LACTATED RINGERS 1,000 ML 30 ML IV CONT (12:00)
--- NOTE | 2024-04-05 13:09 | WPDANESEPPF ---
Anes - Initial Pre Proc Eval Procedure: Operation Date: 04/05/24 12:30 Proposed Procedures p Cystoscopy, Left Ureteroscopy, Possible Left Retrograde Pyelogram, Possible Left Stone Extraction, Possible Left Stent Placement, Possible Holmium Laser - Kvng Palacios MD Date/Time: 04/05/24 13:09 Surgeon: Kvng Palacios MD Pre Op Diagnosis: left ureteral stone Patient Data Age: 73 Gender: M Height: 1.8 m Weight: 94 kg Allergies Allergy/AdvReac Type Severity Reaction Status Date / Time clindamycin Allergy Unknown Rash Verified 03/31/24 15:43 Home Medications ?Medication ?Instructions ?Recorded ?Confirmed ?Type carbamazepine 200 mg tablet 200 mg PO TID 10/16/21 03/31/24 History levetiracetam 500 mg tablet 500 mg PO DAILY 10/16/21 03/31/24 History psyllium husk 3.4 gram/5.4 gram See Rx Instructions .Route .COMPLEX 04/15/22 03/31/24 History oral powder (Metamucil) Patient hx anesthesia problems: none Family hx anesthesia problems: none Results Review: All pre-operative results and documents have been reviewed as part of the pre-operative evaluation. [facility] Past Medical History Medical History Seizure disorder Spondylosis without myelopathy or radiculopathy, lumbar region Surgical History Surgical History History of laparoscopic cholecystectomy 10/20/23 H/O laminectomy H/O hernia repair Family History Family History Other Heart disease Social History Social History Smoking status: Never smoker Second hand tobacco smoke exposure: No Alcohol intake: never Substance use: never Substance use type: does not use Do You Feel Safe in your Home?: Yes Lack of Transportation: No Lack of Food: Never True Current Housing: I Have Housing Concerned About Future Housing: No Difficulty Paying Gas/Electric Bills: No Difficulty Paying for Meds: No Currently Unemployed: No Education: High School Diploma/GED Difficulty w/ Childcare or Family Care: No Living arrangements: with family Additional living arrangements comments: Spiritual care concerns: No Anes - Eval Final PreProcedure Day of Procedure 04/05/24 13:09 Patient weight: overweight Heart: regular rate and rhythm Lungs: clear to auscultation Airway: Mallampati scale class III Neurological: alert and oriented Last oral intake: >/= 8 hours ASA classification: III Emergent: no Anesthetic plan: proceed Anesthesia type and monitoring: general LMA and standard monitoring Results Review: All pre-operative results and documents have been reviewed as part of the pre-operative evaluation. Informed Consent: The patient's anesthetic plan and its attendant risks and benefits were discussed with the patient/family/POA. Questions were solicited and answers provided to the satisfaction of the patient/family/POA.
--- NOTE | 2024-04-05 14:08 | P.OP_ITS ---
Procedure Note - Detailed Date of Procedure 04/05/24 Pre-op Diagnosis left ureteral stone Post-op Diagnosis Same Procedure Performed Cystoscopy, left retrograde pyelogram, left ureteroscopy with laser, stone extraction, stent placement, complex Archer catheter placement Surgeon Kvng Palacios MD Anesthesia General Description of Procedure Patient was taken to the operative suite correctly identified. Once anesthesia was obtained was placed in dorsal lithotomy position and prepped and draped usual sterile fashion. Twenty-two Swedish scope was inserted bladder direct vision he has an obstructing prostate with a high ridge. Took quite a bit of torquing to get the scope into the bladder. The left ureteral orifice was finally visualized. There were no tumors noted. Guidewire was inserted into the orifice. Due to the raised bladder neck it was difficult to dilate with an 810 dilator. This caused some oozing at the bladder neck area. I was finally able to manipulate a rigid ureteral scope into the orifice. He had 1 large stone that mass this to. Using a 200 micron fiber I fragmented the stones. Largest fragment was retrieved and sent for analysis. Pyelogram had been performed to confirm placement of the stent. 4.8 Swedish contour stent was then placed with the proximal end coiled in the renal pelvis and distal in the bladder. Bladder was drained. 2% viscous lidocaine was inserted to the urethra. Eighteen [address] was placed and connected to continuous bladder irrigation. That will be removed and or Thursday if his urine is clear. Stent will be removed in the office in 2-3 weeks time. He is to call for that appointment. This completes dictation. Please send a copy of op note to my office.
[2024-04-05] MEDS: fentaNYL CITRATE INJ (*CRX) 100 MCG/2 ML VIAL 25 MCG IV PUSH ×4 (14:31→14:55)
--- NOTE | 2024-04-05 16:42 | SUR.PHASEI ---
1640: Patient meets PACU discharge criteria, unit bed unavailable at this time. Patient placed in extended recovery status.
[2024-04-05] MEDS: ceFAZolin 1 GM/NS 50 ML 1 GM/50 ML BAG IVPB (20:36)
[2024-04-05] MEDS: carBAMazepine 200 MG TABLET PO (20:36)
[2024-04-05] MEDS: levETIRAcetam 500 MG TABLET PO (20:36)
--- NOTE | 2024-04-05 22:22 | ADMGEN ---
This patient, Guilherme Angeles, was admitted to [facility] Surg Room 326-01. Patient/family oriented to hospital policies and general routines including ID bracelet, bed and alarms, visiting hours, pain management, procedures, bathroom and other care routines, personal items, smoking policy, room service/diet, and visiting hours. Information on how to activate the Rapid Response Team has been discussed. Patient/Family are encouraged to report perceived risks to care and to ask questions if they do not understand what they are told or what they should do.
[2024-04-06 04:30] VITALS: BP 147/76; PULSE 69; RESP 20; TEMP 36.9; O2SAT 98
[2024-04-06] MEDS: ceFAZolin 1 GM/NS 50 ML 1 GM/50 ML BAG IVPB (05:05)
[2024-04-06] MEDS: carBAMazepine 200 MG TABLET PO ×3 (05:22→20:56)
[2024-04-06] MEDS: levETIRAcetam 500 MG TABLET PO (09:22)
[2024-04-06] MEDS: DOCUSATE SODIUM 100 MG CAPSULE PO (09:23)
[2024-04-06] MEDS: HYOSCYAMINE SULFATE 0.125 MG TABLET SUBLINGUAL ×3 (09:25→20:56)
--- NOTE | 2024-04-06 10:49 | WPDUROPN2 ---
Progress Note: A&P Assessment and Plan (1) Left ureteral calculus: Code(s): N20.1 - Calculus of ureter Status: Acute Assessment and Plan: s/p cystoscopy, left retrograde pyelogram, left ureteroscopy with laser, stone extraction, stent placement, complex Archer catheter placement with Dr. Palacios 04/05/24 (2) BPH w urinary obs/LUTS: Code(s): N40.1 - Benign prostatic hyperplasia with lower urinary tract symptoms; N13.8 - Other obstructive and reflux uropathy Status: Acute Assessment and Plan: Marked prostatomegaly noted on 03/31/24 CT AP WO CON (3) Hematuria: Code(s): R31.9 - Hematuria, unspecified Status: Acute Assessment and Plan: Intra-op bleeding from the prostate 2/ cystoscopy/ureteral stent placement. Resolving on slow CBI. On cephalexin for UTI ppx. Plan OK to clamp CBI today. If urine stays clear, he may discharge home later today with Archer. Plan for outpatient Archer removal 04/08/24 if all goes well. Start daily tamsulosin for BPH. To be continued on discharge. Patient has outpatient follow-up with Dr. Palacios 04/21/2024 for ureteral stent removal. Subjective Subjective Date/Time Seen: 04/06/24 10:49 Post Op day: 1 (Cysto, left ureteral stent placement, ureteral stone treatment c/b bleeding from obstructing prostate requiring post-op CBI.) Interval history: NAEO; Patient comfortable on exam, reports few uncomfortable bladder spasms. Urine pale yellow on slow CBI. Exam Const: General: comfortable and no acute distress Resp: Effort & Inspection: normal respiratory effort Urinary Catheter: Urinary Catheter: urine clear (18Fr 3-way Archer on slow CBI) Neuro: Speech: normal speech Extrem: General: normal to inspection Psych: Affect: normal affect Objective Data Vital Signs Vital Signs: Vital Signs - 24 hr 04/05/24 12:00 04/05/24 14:08 04/05/24 14:20 Temperature 97.6 F 97.1 F L Pulse Rate 57 L 65 63 Respiratory Rate 14 14 14 Blood Pressure 156/82 H 130/82 149/86 H Pulse Oximetry 100 98 100 Oxygen Delivery Room Air Simple Face Mask Simple Face Mask Oxygen Flow Rate 6 8 04/05/24 14:26 04/05/24 14:35 04/05/24 14:50 Temperature Pulse Rate 84 56 L 64 Respiratory Rate 19 12 15 Blood Pressure 130/82 142/80 H 143/79 H Pulse Oximetry 98 100 95 Oxygen Delivery Simple Face Mask Simple Face Mask Room Air Oxygen Flow Rate 8 8 04/05/24 15:05 04/05/24 15:20 04/05/24 15:35 Temperature Pulse Rate 57 L 54 L 56 L Respiratory Rate 12 14 12 Blood Pressure 134/83 159/75 H 157/88 H Pulse Oximetry 93 97 95 Oxygen Delivery Room Air Room Air Room Air Oxygen Flow Rate 04/05/24 15:50 04/05/24 16:05 04/05/24 16:20 Temperature Pulse Rate 57 L 67 60 Respiratory Rate 12 12 12 Blood Pressure 160/84 H 138/74 153/68 H Pulse Oximetry 96 95 97 Oxygen Delivery Room Air Room Air Room Air Oxygen Flow Rate 04/05/24 16:35 04/05/24 17:05 04/05/24 17:35 Temperature Pulse Rate 77 83 71 Respiratory Rate 14 16 13 Blood Pressure 146/79 H 150/91 H 144/81 H Pulse Oximetry 95 95 96 Oxygen Delivery Room Air Room Air Room Air Oxygen Flow Rate 04/05/24 18:00 04/05/24 18:15 04/05/24 20:20 Temperature 97.8 F 98.4 F Pulse Rate 69 62 61 Respiratory Rate 12 16 18 Blood Pressure 141/87 H 130/58 L 152/80 H Pulse Oximetry 95 97 99 Oxygen Delivery Room Air Oxygen Flow Rate 04/05/24 23:50 04/06/24 04:30 Temperature 98.1 F 98.4 F Pulse Rate 87 69 Respiratory Rate 18 20 Blood Pressure 151/77 H 147/76 H Pulse Oximetry 95 98 Oxygen Delivery Oxygen Flow Rate Intake/Output Intake/Output: Intake & Output 04/03/24 04/04/24 04/05/24 04/06/24 23:59 23:59 23:59 23:59 Intake Total 750 440 Output Total 85036 800 Balance -26173 -360 Meds/Results Medications: Active Medications Generic Name Dose Route Start Last Admin Trade Name Freq PRN Reason Stop Dose Admin Hydrocodone Bitart/Acetaminophen 1 tab 04/05/24 16:14 Hydrocodone/Acetaminophen (*Crx) 5-325 Mg Tablet PO Q4H PRN Pain Rated 1-6 Carbamazepine 200 mg 04/05/24 22:00 04/06/24 05:22 Carbamazepine 200 Mg Tablet PO 200 mg Q8HR SHANNON Administration Cephalexin HCl 500 mg 04/06/24 12:00 Cephalexin 500 Mg Capsule PO Q6HR SHANNON Docusate Sodium 100 mg 04/05/24 17:00 04/06/24 09:23 Docusate Sodium 100 Mg Capsule PO 100 mg BID SHANNON Administration Hyoscyamine 0.125 mg 04/05/24 16:14 04/06/24 09:25 Hyoscyamine Sulfate 0.125 Mg Tablet SUBLINGUAL 0.125 mg Q6H PRN Administration Bladder Spasm Levetiracetam 500 mg 04/06/24 09:00 04/06/24 09:22 Levetiracetam 500 Mg Tablet PO 500 mg DAILY SHANNON Administration Morphine Sulfate 2 mg 04/05/24 16:14 Morphine Sulfate (*Crx) 2 Mg/Ml Inj IV PUSH Q2H PRN Pain Rated 7-10 Naloxone HCl 0.1 mg 04/05/24 16:14 Naloxone Hcl 0.4 Mg/Ml Vial IV PUSH Q2M PRN Opiate Reversal Ondansetron HCl 4 mg 04/05/24 16:14 Ondansetron Inj 4 Mg/2 Ml Vial IV PUSH Q12H PRN Nausea And Vomiting
[2024-04-06] MEDS: TAMSULOSIN HCL 0.4 MG CAPSULE PO (12:23)
[2024-04-06] MEDS: CEPHALEXIN 500 MG CAPSULE PO ×2 (12:24→17:40)
--- NOTE | 2024-04-06 15:30 | PM.DS ---
DS: Admitting Diagnosis Discharge Date 04/06/24 Admitting Diagnosis Left ureteral calculus, hematuria DS: Discharge Diagnosis Discharge Diagnosis (1) Hematuria: Code(s): R31.9 - Hematuria, unspecified Status: Acute Assessment and Plan: resolved. Discharge home with wilder. Remove wilder on thursday or thursday (2) BPH w urinary obs/LUTS: Code(s): N40.1 - Benign prostatic hyperplasia with lower urinary tract symptoms; N13.8 - Other obstructive and reflux uropathy Status: Acute Assessment and Plan: start tamsulosin and finesteride. DS: Summary Hospital Course Reason for hospitalization: hematuria post ureteroscopy Hospital Course: Patient developed hematuria post ureteroscopy. Bleeding from enlarged, vascular prostate. CBI placed. Urine has cleared and he will be discharged home with wilder. Status at Discharge Functional status at discharge: independent ambulation Time Spent with Patient Time attestation: Total time spent providing and/or coordinating discharge services: DS: Data Data Completed and Pending Pending studies at discharge: Pending at discharge 04/05/24 13:57 Surgical [PTH] Routine Discharge Plan Discharge Patient Disposition: Home, Self-Care Discharge Instructions: Discharged home when awake and alert with Wilder catheter. Have Wilder catheter removed on or Thursday if urine is clear. Call the have stent removed in 2-3 weeks time. Call for that appointment. Scripts sent to pharmacy. Patient Language: Comoran Stand Alone Forms: General Discharge Instructions Discharge Medications: New sulfamethoxazole-trimethoprim [Bactrim DS] 800-160 mg tablet 1 tablet PO Q12H Qty: 6 0RF tramadol 50 mg tablet 50 mg PO Q6H PRN (Reason: pain) Qty: 20 0RF tamsulosin 0.4 mg capsule 0.4 mg PO HS Qty: 30 6RF finasteride 5 mg tablet 5 mg PO DAILY Qty: 30 6RF Continued levetiracetam 500 mg Tablet 500 mg PO DAILY Patient Comments: TAKES ONLY ONE A DAY carbamazepine 200 mg Tablet 200 mg PO TID Metamucil 3.4 gram/5.4 gram Powder See Rx Instructions .ROUTE .COMPLEX Rx Instructions: take 1 dose each evening
[2024-04-06 16:00] VITALS: BP 129/71; PULSE 100; RESP 16; TEMP 36.3; O2SAT 95
--- NOTE | 2024-04-06 18:43 | WPDANESPN ---
Anes - Prog Note Post-Op Date/Time: 04/06/24 18:43 Cardiovascular status: normal Respiratory status: normal Airway patency: baseline Mental status: baseline Post-Op hydration status: normal Vital Signs: Last Vital Signs Temp 97.4 F L 04/06/24 16:00 Pulse 100 04/06/24 16:00 Resp 16 04/06/24 16:00 BP 129/71 04/06/24 16:00 Pulse Ox 95 04/06/24 16:00 O2 Del Method Room Air 04/05/24 18:00 O2 Flow Rate 8 04/05/24 14:35 Pain Score (VAS): 0/10 I/O: Intake & Output 04/06/24 04/06/24 04/06/24 07:59 15:59 23:59 Intake Total 200 360 120 Output Total 800 Balance -600 360 120 Post-procedural complaints: none Patient Feedback: Patient satisfied with anesthetic care.
[2024-04-06 21:01] VITALS: BP 148/79; PULSE 74; RESP 18; TEMP 36.9; O2SAT 97
--- NOTE | ~2024-04-07 | XR_ITS ---
EXAMINATION: XR retrograde pyelo w/stent LT DATE: 04/05/2024 14:05 INDICATION: Left internal ureteral stent placement TECHNIQUE: Fluoroscopic images from a left internal ureteral stent placement are submitted for review . 26 seconds of fluoroscopy time. 4 fluoroscopic images. FINDINGS: There is a left double-J internal ureteral stent projecting in expected position, with proximal Campbell loop at the level of the renal pelvis. IMPRESSION: 1. Left internal ureteral stent placement. Please refer to real-time procedural findings for detail s. Reviewed, dictated and finalized at location B. TABLE PERSON
[2024-04-07] MEDS: CEPHALEXIN 500 MG CAPSULE PO ×2 (01:05→05:44)
[2024-04-07] MEDS: carBAMazepine 200 MG TABLET PO (05:44)
[2024-04-07 06:07] VITALS: BP 143/75; PULSE 79; RESP 16; TEMP 36.3; O2SAT 95
[2024-04-07] MEDS: TAMSULOSIN HCL 0.4 MG CAPSULE PO (09:04)
[2024-04-07] MEDS: levETIRAcetam 500 MG TABLET PO (09:04)
== END 2024-04-07 12:50 | disposition home or self-care (01) ==
LOC: ANHSURGERY 11:22 → ANH3MEDSUR 11:22
PROVIDERS: Admitting Provider Urology; PCP Family Medicine; Visit Provider Urology
PROC: (CPT 52352; principal; 2024-04-05 12:30)
DX: N20.1 Calculus of ureter (principal); R31.9 Hematuria, unspecified; N40.1 Benign prostatic hyperplasia with lower urinary tract symptoms; N13.8 Other obstructive and reflux uropathy; G40.909 Epilepsy, unspecified, not intractable, without status epilepticus
CPT/HCPCS: 52356; 74420; 82365; 88300; A9270; C1769; C2617; G0378; J0690; J2250; J2270; J2704; J3010; J7120; Q9966